=== PATIENT | female | born 1950 | race Caucasian/White ===

== ENCOUNTER → 2016-08-16 | Outpatient (CLI) | payer BC ==
[~2016-08-16] MED LIST: ACET-1138 PO; ASPEC81 PO; ATOR10TA88 PO; IBUP-1050 PO; NRV5 PO; RXC5 PO
[2016-08-16 12:46] LABS: ALT/SGPT 40 U/L (12-78); AST/SGOT 20 U/L (15-37); BLOOD UREA NITROGEN 15 mg/dl (7-18); BUN/CREATININE RATIO 20.2 (10-20); CALCIUM 8.7 mg/dl (8.5-10.1); CARBON DIOXIDE 25 mmol/L (21-32); CHLORIDE 108 mmol/L (98-107); CREATININE 0.76 mg/dl (0.60-1.20); GLUCOSE 90 mg/dl (70-99); POTASSIUM 4.1 mmol/L (3.5-5.1); SODIUM 141 mmol/L (136-145)
[2016-08-16 12:48] LABS: ALB/GLOB RATIO 1.2 (0.9-2); ALKALINE PHOSPHATASE 83 U/L (45-117); CHOLESTEROL 174 mg/dl (0-200); HDL CHOLESTEROL 86 mg/dl; LDL CHOLESTEROL CALCULATED 75 mg/dl; TRIGLYCERIDES 63 mg/dl (0-150); VERY LOW DENSITY LIPOPROT CALC 13 mg/dl
== END | disposition home or self-care (01) ==
LOC: C.LABBFT 08:41
PROVIDERS: ATTEND Internal Medicine
DX: F17.200 Nicotine dependence, unspecified, uncomplicated (principal); E78.5 Hyperlipidemia, unspecified

== ENCOUNTER 2016-10-27 00:58 | Inpatient (IN) | payer BC, OTHER ==
[2016-10-27] VITALS (15 sets, daily range): BP systolic 124–212; BP diastolic 77–99; PULSE 65–90; TEMP 36.4–37.2; O2SAT 93–100; Ht 152.4 cm; Wt 52.4 kg
[~2016-10-27] VITALS: Ht 152.4 cm; Wt 52.4 kg
[~2016-10-27 00:58] MED LIST changes: -ACET-1138 PO; -ASPEC81 PO; -ATOR10TA88 PO; -NRV5 PO; -RXC5 PO
[2016-10-27] MEDS ORDERED: ONDANSETRON INJ 2 MG/ML 2 ML VIAL IV STA (01:27)
[2016-10-27] MEDS: MoRPHine SULFATE 4 MG/ML 1 ML CARP\\VIAL IV PRN ×4 (01:34→03:08)
--- NOTE | 2016-10-27 01:35 | EMERGENCY ROOM VISIT NOTE ---
History Report prepared by Raghavendra: Fabio Malone Under the Supervision of: Dr. Marvin Chau M.D. First contact with patient: 01:23 Chief Complaint: ARM PAIN Stated Complaint: FALL POSSIBLE BROKEN LEFT ARM,RT ARM PAIN History of Present Illness The patient is a 65 year old female who presents to the Emergency Room with complaints of bilateral shoulder pain that occurred 20 minutes ago. The patient rates her current pain a 10/10 in severity. The patient was walking through her door when she tripped and fell forward onto her arms. Her left is worse than her right. Her pain worsens with movement. She thinks she may have damaged her right front tooth as well. She did not lose consciousness. She denies any other pain anywhere. She is just on a medication for her cholesterol. She has never had a broke bone before. Source of History: patient Onset: 20 minutes ago Position: shoulder (bilateral) Symptom Intensity: 10/10 Quality: sharp Timing: constant Modifying Factors (Worsening): movement Associated Symptoms: No LOC, No SOB, No abdominal pain, No back pain, No chest pain, No neck pain Review of Systems See HPI for pertinent positives & negatives. A total of 10 systems reviewed and were otherwise negative. Past Medical & Surgical Medical Problems: (1) Hyperlipidemia Family History Omitted due to age. Social History Smoking Status: Never Smoker Smokeless Tobacco Use: No Drug Use: none Marital Status: Housing Status: lives with family Occupation Status: retired Current/Historical Medications Scheduled Atorvastatin (Lipitor), 10 MG PO QPM Allergies Coded Allergies: No Known Allergies (Unverified , 06/30/14) Physical Exam Vital Signs Date Time Temp Pulse Resp B/P Pulse Ox O2 Delivery O2 Flow Rate FiO2 10/27/16 04:30 82 16 174/97 99 Nasal Cannula 2.0 10/27/16 04:15 73 16 193/91 100 Nasal Cannula 2.0 10/27/16 04:10 78 16 180/85 99 Mask 10/27/16 04:07 6 96 Nasal Cannula 2.0 10/27/16 04:06 72 16 212/99 98 Nasal Cannula 2.0 10/27/16 03:48 62 16 204/92 99 Nasal Cannula 2.0 10/27/16 03:43 65 16 204/92 99 Nasal Cannula 2.0 10/27/16 03:40 77 10/27/16 03:09 65 16 184/89 95 Room Air 10/27/16 02:30 69 16 193/97 96 Room Air 10/27/16 01:07 36.3 103 20 195/113 95 Room Air Physical Exam GENERAL: Patient is in no acute distress. HEENT: No facial deformity. Mucous membranes are moist. No scalp hematoma. Right upper 1st incisor is loose with some bleeding at the gum line. NECK: No stridor, no adenopathy, no meningismus, trachea is midline. No posterior c-spine tenderness. LUNGS: Clear to auscultation bilaterally, no wheeze, no rhonchi, breath sounds equal. HEART: Without murmurs gallops or rubs, regular rate and rhythm. ABDOMEN: Soft, nontender, bowel sounds positive, no hernias, no peritonitis. BACK: No tenderness to the thoracic or lumbar spine. EXTREMITIES: Tender to palpate both shoulders, possible dislocation to the right shoulder by exam. No gross deformity to the right or left humerus. Elbows , wrists, and hands have no tenderness. Clavicles nontender. NEUROLOGIC: Oriented x 3, no acute motor or sensory deficits, no focal weakness. SKIN: No rash, no jaundice, no diaphoresis. Medical Decision & Procedures ER Provider Diagnostic Interpretation: X-ray results as stated below per interpretation by me: CHEST X-RAY: Right shoulder dislocation, no pneumothorax, no obvious rib fracture, no clavicle fracture Per me Left Shoulder X-RAY: Fracture to the shaft of the proximal humerus, no shoulder dislocation Per me Right Shoulder X-RAY: Anterior dislocation of the right shoulder, no fractures seen Per me Post Reduction Right Shoulder X-RAY: No longer any dislocation, no fracture Per me Post Splint Left Shoulder X-RAY: Same fracture noted previously is present, 100% displacement and some overriding of the bony fragments. Per me Laboratory Results 10/27/16 01:35 10/27/16 01:35 Test 10/27/16 01:35 Red Blood Count 3.81 M/uL (4.2-5.4) Mean Corpuscular Volume 89.5 fL (80-100) Mean Corpuscular Hemoglobin 30.7 pg (25-34) Mean Corpuscular Hemoglobin Concent 34.3 g/dl (32-36) RDW Standard Deviation 44.8 fL (36.4-46.3) RDW Coefficient of Variation 13.6 % (11.5-14.5) Mean Platelet Volume 9.6 fL (7.4-10.4) Prothrombin Time 11.0 SECONDS (9.0-12.0) Prothromb Time International Ratio 1.0 (0.9-1.1) Activated Partial Thromboplast Time 23.6 SECONDS (21.0-31.0) Partial Thromboplastin Ratio 0.9 Anion Gap 12.0 mmol/L (3-11) Est Creatinine Clear Calc Drug Dose 51.6 ml/min Estimated GFR () 92.5 Estimated GFR (Non- 79.8 BUN/Creatinine Ratio 15.2 (10-20) Calcium Level 8.3 mg/dl (8.5-10.1) 25-Hydroxy Vitamin D Total 7.9 ng/ml (30-100) Laboratory results reviewed by me. Medications Administered Medications (Trade) Dose Ordered Sig/Evelyn Route Start Time Stop Time Status Last Admin Dose Admin Morphine Sulfate (MoRPHine SULFATE INJ) 4 mg Q15M PRN IV 10/27/16 01:30 10/27/16 05:58 DC 10/27/16 03:08 4 MG Ondansetron HCl (Zofran Inj) 4 mg NOW STAT IV 10/27/16 01:27 10/27/16 01:30 DC 10/27/16 01:34 4 MG Procedure Procedural Sedation Indication: Shoulder dislocation. Total time: 20 minutes. Written consent was obtained after the risks and benefits were explained to the patient, including, but not limited to aspiration, allergic reaction, breathing difficulties, cardiac complications, vomiting, pain, event recall, bleeding, and /or infection. Pre-sedation examination and paperwork completed. The patient was on 100% oxygen via NRB prior to the procedure. Continuos end tidal CO2 monitoring, pulse oximetry, and cardiac monitoring were utilized. Suction, airway equipment, medications, respiratory equipment, and appropriate personnel were prepared prior to the initiation of the procedure. A time out was taken. Sedation was achieved utilizing 5 mg of IV Etomidate. After I observed the patient had reached the appropriate level of sedation the main procedure was performed without complication. Sedation was discontinued and the monitoring continued. The patient recovered quickly from the effects of the medication without complication or adverse event. Right Should Reduction: Using conscious sedation and traction with countertraction, the right shoulder was easily reduced. Post reduction films were obtained. ED Course 0123: The patient was evaluated in room B3. A complete history and physical exam was performed. 0127: Ordered Zofran Inj 4 mg IV 0130: Ordered Morphine Sulfate 4 mg IV 0358: Ordered Etomidate 5 mg IV 0405: At this time, I conducted a conscious sedation and shoulder reduction procedure. Please see the procedure note for more detail. 0425: I left the room at this time. The procedures were completed. 0438: Upon reexamination the patient is resting. I discussed results and treatment plan with the patient. She verbalizes agreement and understanding. The patient will be evaluated by Dr. Barahona - Orthopedics, for further management. I also updated the patient's at this time. Medical Decision Differential diagnosis includes but is not limited to shoulder or humeral fracture, clavicle fracture, facial fracture, intracranial bleeding, c-spine injury, and shoulder dislocation. There is no leukocytosis or concerning anemia. No significant electrolyte abnormality or kidney failure. There is no coagulopathy. Chest film shows a right anterior shoulder dislocation, there was no rib fracture, pneumothorax or pneumonia. Right shoulder film shows no fracture but there is a right anterior shoulder dislocation. Left shoulder and left humerus films show a proximal shaft humeral fracture with near 100% displacement and some overriding of the fracture fragments. There was no dislocation of the shoulder joint. On exam, no other injuries were noted except for loosening of the patient's right upper front tooth. No facial fracture suspected. The patient is not on any type of anticoagulation. There was no evidence for injury to the C-spine, back, chest or abdomen. The patient received IV morphine, IV Zofran and IV saline. The left humeral fracture was splinted. I had a long discussion with the patient about the way in which to reduce her right shoulder, she did consent to conscious sedation, the paperwork was signed. She had not had anything to eat and multiple hours. Conscious sedation was performed using only 5 mg of IV Etomidate. Traction and countertraction were used to reduce the right shoulder dislocation. No complications. The patient did require a few breaths of bag valve mask ventilation directly after the reduction was complete. She did well with no drop off her O2 saturation. Admission/observation is warranted. She will require surgery. Both arms have been injured. She cannot care for herself at home. I did speak with the patient and her . The on-call orthopedist was consulted. Consults Time Called: [phone] Consulting Physician: Dr. Faustino Barahona - Orthopedics Returned Call: [phone] He will be evaluating the patient for further management. Impression Primary Impression: Left humeral fracture Additional Impressions: Dislocation of right shoulder joint Dental trauma Fall Scribe Attestation The scribe's documentation has been prepared under my direction and personally reviewed by me in its entirety. I confirm that the note above accurately reflects all work, treatment, procedures, and medical decision making performed by me. Departure Information Dispostion Being Evaluated By Surgeon Referrals Alfredo Zayas M.D. (PCP) Patient Instructions My [facility] Problem Qualifiers
[2016-10-27] MEDS ORDERED: ATOR10TA82 PO (01:57)
[2016-10-27 03:36] LABS: HEMATOCRIT 34.1 % (37-47); MEAN CELL VOLUME 89.5 fL (80-100); MEAN CORPUSCULAR HEMOGLOBIN 30.7 pg (25-34); MEAN CORPUSCULAR HGB CONC 34.3 g/dl (32-36); MEAN PLATELET VOLUME 9.6 fL (7.4-10.4); PLATELET COUNT 264 K/uL (130-400); RED BLOOD COUNT 3.81 M/uL (4.2-5.4); WHITE BLOOD COUNT 6.49 K/uL (4.8-10.8)
[2016-10-27 03:43] LABS: BUN/CREATININE RATIO 15.2 (10-20); CALCIUM 8.3 mg/dl (8.5-10.1); CREATININE 0.78 mg/dl (0.60-1.20); POTASSIUM 3.3 mmol/L (3.5-5.1)
[2016-10-27] MEDS ORDERED: ETOMIDATE 2 MG/ML 20 ML VIAL IV ONE (03:58)
[2016-10-27] MEDS ORDERED: NURSING VERBAL MED ORDER ONE ×2 (05:00→14:39)
[2016-10-27 05:23] LABS: PARTIAL THROMBOPLASTIN RATIO 0.9
[2016-10-27] MEDS ORDERED: ONDANSETRON INJ 2 MG/ML 2 ML VIAL IV PRN ×2 (06:00→10:00)
[2016-10-27] MEDS ORDERED: CEFAZOLIN 1000MG/55 ML D5W IV SCH (06:00)
[2016-10-27] MEDS: SODIUM CHLORIDE 0.9% 1000ML 1,000 ML IV SCH ×2 (06:15→16:47)
[2016-10-27] MEDS: HYDROmorphone INJ 0.5 MG/0.5 ML SYR IV PRN ×2 (06:22→09:24)
[2016-10-27] MEDS ORDERED: INFLUENZA VIRUS QUAD VACCINE 0.5 ML SYR IM. ONE (07:00)
[2016-10-27] MEDS ORDERED: PNEUMOCOCCAL POLYSACCHARIDES 25 MCG/0.5 ML VIAL/SYR IM. ONE (07:00)
[2016-10-27] MEDS ORDERED: INFLUENZA ADMINISTRATION CHARGE ONE (07:00)
[2016-10-27] MEDS ORDERED: PNEUMOCOCCAL ADMINISTRATION CHARGE ONE (07:00)
--- NOTE | 2016-10-27 07:27 | DIAGNOSTIC IMAGING REPORT ---
CHEST ONE VIEW PORTABLE CLINICAL HISTORY: Chest pain status post trauma COMPARISON STUDY: 10/29/2012 FINDINGS: The cardiac and mediastinal contours are normal. There is no evidence of focal pulmonary consolidation. There is no evidence of failure. No pleural effusions are visualized.[ There is a right shoulder dislocation. IMPRESSION: 1. Right shoulder dislocation 2. No evidence of focal pulmonary consolidation. No evidence of pneumothorax. Electronically signed by: Kwabena Young M.D. 10/27/2016 7:26 AM Dictated Date/Time: 10/27/2016 7:24 AM
--- NOTE | 2016-10-27 07:28 | DIAGNOSTIC IMAGING REPORT ---
RIGHT SHOULDER MIN 2 VIEWS ROUTINE CLINICAL HISTORY: Right shoulder pain status post trauma COMPARISON: None. DISCUSSION: There is anterior dislocation of the right shoulder. There is equivocal Hill-Sachs deformity. No humeral neck fractures are visualized. IMPRESSION: Anterior dislocation. Electronically signed by: Kwabena Young M.D. 10/27/2016 7:26 AM Dictated Date/Time: 10/27/2016 7:26 AM
--- NOTE | 2016-10-27 07:29 | DIAGNOSTIC IMAGING REPORT ---
LEFT SHOULDER MIN 2 VIEWS ROUTINE CLINICAL HISTORY: fall, pain COMPARISON: None. DISCUSSION: There is no dislocation. There is an oblique/spiral fracture of the proximal humeral diaphysis. The fracture is displaced by nearly one full shaft width. IMPRESSION: Displaced oblique/spiral fracture of the proximal humeral diaphysis Electronically signed by: Kwabena Young M.D. 10/27/2016 7:27 AM Dictated Date/Time: 10/27/2016 7:27 AM
--- NOTE | 2016-10-27 08:15 | Medical Consult ---
Consultation Date of Consultation: Oct 27, 2016. Attending Physician: Parker Barahona D.O. Reason for Consultation: Mechanical fall, humerus fracture, shoulder dislocation History of Present Illness Pt is a 65 yo female who presents to the ER with complaints of bilateral shoulder pain that occurred [employer]. Patient is a healthy female who states she suffered a mechanical fall by tripping over a rug, and falling forward onto her arms. Pt denies any preceding symptoms including shortness of breath, chest pain, palpitations, headaches. She denies loss of consciousness but states did knock a tooth loose. Pt only has hx of dyslipidemia in which she takes atorvastatin. Pt is not a smoker and follows up with Dr Zayas as an outpatient. Past Medical/Surgical History Medical Problems: (1) Dental trauma Status: Acute (2) Dislocation of right shoulder joint Status: Acute (3) Fall Status: Acute (4) Left humeral fracture Status: Acute Social History Smoking Status: Former Smoker Smokeless Tobacco Use: No Drug Use: none Marital Status: Housing Status: lives with family Occupation Status: retired Allergies Coded Allergies: No Known Allergies (Unverified , 06/30/14) Current Inpatient Medications Current Inpatient Medications Medications (Trade) Dose Ordered Sig/Evelyn Route Start Time Stop Time Status Last Admin Dose Admin Sodium Chloride (Nss 1000ml) 1,000 ml @ 100 mls/hr Q10H IV 10/27/16 06:00 11/26/16 05:59 10/27/16 06:15 100 MLS/HR Hydromorphone HCl (Dilaudid Inj) 0.3 mg Q3H PRN IV 10/27/16 06:00 11/10/16 05:59 10/27/16 06:22 0.3 MG Ondansetron HCl 4 mg 4 mg Q6H PRN IV 10/27/16 06:00 11/26/16 05:59 Cefazolin Sodium (Ancef 1000mg/55 ml D5W) 55 ml @ 100 mls/hr PREOP IV 10/27/16 06:00 10/27/16 18:00 Hydralazine HCl (HydrALAZINE INJ) 10 mg Q4HWA PRN IV. 10/27/16 08:00 11/26/16 07:59 UNV Review of Systems Constitutional: No chills, No fever Respiratory: No cough, No dyspnea on exertion, No shortness of breath, No sputum Cardiovascular: No chest pain, No orthopnea Abdomen: No constipation, No diarrhea, No nausea, No pain, No vomiting Musculoskeletal: + joint pain, No muscle pain Genitourinary - Female: No dysuria, No urinary frequency Neurologic: No paralysis, No weakness Physical Exam Date Time Temp Pulse Resp B/P Pulse Ox O2 Delivery O2 Flow Rate FiO2 10/27/16 08:06 36.4 81 16 161/79 99 Nasal Cannula 2.0 10/27/16 06:04 36.7 81 18 98 Nasal Cannula 2.0 10/27/16 05:10 82 16 167/89 98 Nasal Cannula 2.0 10/27/16 04:30 82 16 174/97 99 Nasal Cannula 2.0 10/27/16 04:15 73 16 193/91 100 Nasal Cannula 2.0 10/27/16 04:10 78 16 180/85 99 Mask 10/27/16 04:07 6 96 Nasal Cannula 2.0 10/27/16 04:06 72 16 212/99 98 Nasal Cannula 2.0 10/27/16 03:48 62 16 204/92 99 Nasal Cannula 2.0 10/27/16 03:43 65 16 204/92 99 Nasal Cannula 2.0 10/27/16 03:40 77 10/27/16 03:09 65 16 184/89 95 Room Air 10/27/16 02:30 69 16 193/97 96 Room Air 10/27/16 01:07 36.3 103 20 195/113 95 Room Air General Appearance: WD/WN, + mild distress Head: normocephalic, atraumatic Eyes: PERRL, EOMI Neck: supple, no adenopathy Respiratory/Chest: lungs clear, normal breath sounds Cardiovascular: no edema, no gallop Abdomen/GI: non tender, soft Neurologic/Psych: alert, normal mood/affect, oriented x 3 Laboratory Results Last 24 Hours Test 10/27/16 01:35 White Blood Count 6.49 K/uL Red Blood Count 3.81 M/uL Hemoglobin 11.7 g/dL Hematocrit 34.1 % Mean Corpuscular Volume 89.5 fL Mean Corpuscular Hemoglobin 30.7 pg Mean Corpuscular Hemoglobin Concent 34.3 g/dl RDW Standard Deviation 44.8 fL RDW Coefficient of Variation 13.6 % Platelet Count 264 K/uL Mean Platelet Volume 9.6 fL Prothrombin Time 11.0 SECONDS Prothromb Time International Ratio 1.0 Activated Partial Thromboplast Time 23.6 SECONDS Partial Thromboplastin Ratio 0.9 Sodium Level 136 mmol/L Potassium Level 3.3 mmol/L Chloride Level 103 mmol/L Carbon Dioxide Level 21 mmol/L Anion Gap 12.0 mmol/L Blood Urea Nitrogen 12 mg/dl Creatinine 0.78 mg/dl Est Creatinine Clear Calc Drug Dose 51.6 ml/min Estimated GFR () 92.5 Estimated GFR (Non- 79.8 BUN/Creatinine Ratio 15.2 Random Glucose 129 mg/dl Calcium Level 8.3 mg/dl Assessment & Plan Pt is a 65 yo female s/p mechanical fall Left humerus fx/right shoulder dislocation from mechanical fall. No LOC reported. Pt is completely independent at home. EKG NSR. Cont pain control. Will check Vit D level. Will likely need DEXA scan as outpt. Low risk for surgery and cleared from medical standpoint. Dyslipidemia cont atorvastatin Pt is FULL CODE
--- NOTE | 2016-10-27 08:21 | DIAGNOSTIC IMAGING REPORT ---
RIGHT SHOULDER MIN 2 VIEWS ROUTINE CLINICAL HISTORY: Dislocation. Post reduction study. COMPARISON: None. DISCUSSION: There is been interval reduction of the previously described anterior dislocation. No acute fractures are visualized the provided 2 images. Degenerative changes are present within the AC joint. IMPRESSION: Interval reduction of the presented identified dislocation Electronically signed by: Kwabena Young M.D. 10/27/2016 8:20 AM Dictated Date/Time: 10/27/2016 8:19 AM
--- NOTE | 2016-10-27 08:35 | DIAGNOSTIC IMAGING REPORT ---
LEFT HUMERUS MIN 2 VIEWS ROUTINE CLINICAL HISTORY: Left humeral fracture. Post splint placement. COMPARISON: Left shoulder x-ray dated 10/27/2016 DISCUSSION: There is an oblique/spiral fracture of the proximal humeral diaphysis. The fracture demonstrates greater than 1 full shaft width displacement. There is 17 degrees of angulation at the fracture site. There is associated soft tissue swelling IMPRESSION: Displaced angulated oblique/spiral fracture of the proximal humeral diaphysis Electronically signed by: Kwabena Young M.D. 10/27/2016 8:34 AM Dictated Date/Time: 10/27/2016 8:33 AM
--- NOTE | 2016-10-27 08:42 | History and Physical ---
History & Physical Date Oct 27, 2016. History of Present Illness The patient is a 65 year old female with complaints of bilateral shoulder pain after a fall. Pt states that as she was ambulating at home when she tripped on a piece of carpet. She fell forwards onto outstretched hands trying to break her fall. She had immediate pain in both shoulders and was unable to move them do to pain. She denies LOC after the fall. Denies SOB, CP, LH prior to or after the fall. Pt came to the [facility] ED with her and was found to have a dislocated Right Shoulder and a proximal left humerus fracture. The right shoulder dislocation was reduced and placed in a sling. The LUE was placed in a splint and sling. Pt has now been admitted for further orthopedic care. Past Medical/Surgical History Medical Problems: (1) Hyperlipidemia Family Hx - Mother with h/o DM Type 2 Social Hx - Pt is and lives with spouse. Former Smoker. Alcohol on occasion. Works at [employer] in [place] Additional History Hepatic Disease: No Endocrine Disorder: No Kidney Disease: No Hypertension: No Heart Disease: No Bleeding Tendencies: No Infectious Diseases: No Allergies Coded Allergies: No Known Allergies (Unverified , 06/30/14) Home Medications Scheduled Atorvastatin (Lipitor), 10 MG PO QPM Physical Examination Skin: warm/dry Eyes: normal inspection ENT: + pertinent finding (nasal airway is patent. oral mucosa is pink and dry) Head: normocephalic Neck: supple Respiratory/Chest: lungs clear Cardiovascular: regular rate, rhythm Abdomen / GI: normal bowel sounds, non tender Extremities: + pertinent finding (RUE in sling. R elbow/wrist/hand/fingers with good ROM. No ROM done with shoulder due to injury. LUE in sling/splint. L wrist/hand fingers with good ROM.) Neurologic/Psych: no motor/sensory deficits, alert, oriented x 3 Diagnosis R Shoulder Dislocation with successful reduction in ER L Proximal Humerus Fracture Plan of Treatment Plan for ORIF of Left proximal Humerus Fracture today. Continue Sling for RUE with no ROM of shoulder at this time. Message from nursing staff that patient has been cleared medically for OR.
[2016-10-27] MEDS ORDERED: ATROPINE SULFATE 0.1 MG/ML 5ML SYR IV PRN (10:00)
[2016-10-27] MEDS ORDERED: EpHEDrine SULFATE INJ 50 MG/ML AMP IV PRN (10:00)
[2016-10-27] MEDS ORDERED: FENTANYL CITRATE INJ 50 MCG/1 ML 2 ML VIAL IV PRN (10:00)
[2016-10-27] MEDS ORDERED: MIDAZOLAM HCL 1 MG/ML 2ML VIAL ONE (10:36)
[2016-10-27] MEDS ORDERED: FENTANYL CITRATE INJ 50 MCG/1 ML 2 ML VIAL ONE (10:36)
[2016-10-27] MEDS ORDERED: ROPIVACAINE 0.5% 5 MG/ML 30 ML VIAL ONE (11:14)
--- NOTE | 2016-10-27 11:32 | History & Physical Bridge Note ---
H&P Re-Evaluation Bridge Note: I have examined the patient, reviewed the History & Physical and in the interval since the performance of the History & Physical I have noted the following changes of clinical significance: No changes noted
[2016-10-27] MEDS ORDERED: CEFAZOLIN SOD 1 GM VIAL ONE (12:38)
[2016-10-27] MEDS ORDERED: BUPIVACAINE/EPINEPHRINE 0.5% MPF 1:200,000 30 ML VIAL ONE (12:58)
[2016-10-27] MEDS ORDERED: LIDOCAINE HCL 2% 2 ML VIAL (20MG/ML) ONE (13:13)
[2016-10-27] MEDS ORDERED: PROPOFOL IV EMULSION 10 MG/ML 20 ML VIAL IV ONE (13:13)
[2016-10-27] MEDS ORDERED: ONDANSETRON INJ 2 MG/ML 2 ML VIAL ONE (13:13)
[2016-10-27] MEDS ORDERED: DEXAMETHASONE SOD INJ 4 MG/ML VIAL ONE (13:13)
--- NOTE | 2016-10-27 14:21 | DIAGNOSTIC IMAGING REPORT ---
INTRAOPERATIVE LEFT HUMERUS 4 VIEWS CLINICAL HISTORY: Left humeral fracture COMPARISON STUDY: 10/27/2016 FINDINGS: 131 seconds of fluoroscopic time was utilized. The patient's left humeral fracture has been internally fixated with an interlocking intramedullary ivory. Fracture alignment appears near-anatomic. IMPRESSION: Internally fixated fracture of the proximal left humeral diaphysis Electronically signed by: Kwabena Young M.D. 10/27/2016 2:19 PM Dictated Date/Time: 10/27/2016 2:18 PM
--- NOTE | 2016-10-27 14:22 | [facility] Post Operative Brief Note ---
Immediate Operative Summary Operative Date Oct 27, 2016. Pre-Operative Diagnosis Left Closed Proximal 1/3 Humerus Fracture Post-Operative Diagnosis Left Closed Proximal 1/3 Humerus Fracture Procedure(s) Performed Intramedullary Nail Fixation left proximal 1/3 humeral shaft fracture Surgeon Dr. Parker Barahona Lens Mounter Surgeon(s) Sanya Johnson PA-C Estimated Blood Loss 30 mL Findings See dict Specimens No pathology specimens per surgeon Drains None Anesthesia GLMA w/ interscalene block and local Complication(s) None Disposition Recovery Room / PACU
[2016-10-27] MEDS ORDERED: ACETAMINOPHEN 325 MG TAB PO PRN (14:30)
[2016-10-27] MEDS ORDERED: MAGNESIUM HYDROXIDE SUSP 30 ML UDC PO PRN (14:30)
[2016-10-27] MEDS ORDERED: LABETALOL HCL IV 5 MG/ML 20ML IV ONE (14:45)
--- NOTE | 2016-10-27 15:01 | Anesthesiology Progress Note ---
Anesthesia Post Op Note Date & Time Oct 27, 2016 at 15:02 Vital Signs Pain Intensity: 0 Vital Signs Past 12 Hours Date Time Temp Pulse Resp B/P Pulse Ox O2 Delivery O2 Flow Rate FiO2 10/27/16 14:50 75 12 176/78 100 Mask 10 10/27/16 14:40 72 17 194/87 100 Mask 10 10/27/16 14:30 36.0 79 16 176/108 100 Mask 10 10/27/16 08:06 36.4 81 16 161/79 99 Nasal Cannula 2.0 10/27/16 07:30 99 Room Air 10/27/16 06:04 36.7 81 18 98 Nasal Cannula 2.0 10/27/16 05:10 82 16 167/89 98 Nasal Cannula 2.0 10/27/16 04:30 82 16 174/97 99 Nasal Cannula 2.0 10/27/16 04:15 73 16 193/91 100 Nasal Cannula 2.0 10/27/16 04:10 78 16 180/85 99 Mask 10/27/16 04:07 6 96 Nasal Cannula 2.0 10/27/16 04:06 72 16 212/99 98 Nasal Cannula 2.0 10/27/16 03:48 62 16 204/92 99 Nasal Cannula 2.0 10/27/16 03:43 65 16 204/92 99 Nasal Cannula 2.0 10/27/16 03:40 77 10/27/16 03:09 65 16 184/89 95 Room Air Notes Mental Status: alert / awake / arousable, participated in evaluation Pt Amnestic to Procedure: Yes Nausea / Vomiting: adequately controlled Pain: adequately controlled Airway Patency, RR, SpO2: stable & adequate BP & HR: stable & adequate Hydration State: stable & adequate Anesthetic Complications: no major complications apparent
--- NOTE | 2016-10-27 15:11 | DIAGNOSTIC IMAGING REPORT ---
LEFT HUMERUS MIN 2 VIEWS ROUTINE CLINICAL HISTORY: Postop left humeral fracture internal fixation COMPARISON: Fracture DISCUSSION: 2 views reveal no internally fixated spiral fracture of the proximal left humeral diaphysis. Fracture has been fixated with an interlocking intramedullary ivory. Fracture alignment is near-anatomic. IMPRESSION: Internally fixated left humeral fracture Electronically signed by: Kwabena Young M.D. 10/27/2016 3:10 PM Dictated Date/Time: 10/27/2016 3:09 PM
[2016-10-27] MEDS: HydrALAZINE HCL 20 MG/ML VIAL IV. PRN ×2 (18:08→18:09)
--- NOTE | 2016-10-27 18:42 | OPERATIVE REPORT ---
DATE OF OPERATION: 10/27/2016 PREOPERATIVE DIAGNOSES: Left displaced proximal one-third closed humeral shaft fracture. POSTOPERATIVE DIAGNOSIS: Same. PROCEDURE: Intramedullary nailing, left proximal one-third closed humeral shaft fracture using a Synthes 7 mm titanium cannulated humeral nail 230 mm in length using three 4 mm locking screws and a titanium end-cap. SURGEON: Dr. Barahona. DRAFTING SUPERVISOR: Sanya Johnson PA-C. Due to the complex nature of the procedure, the entire surgery was performed with the orthopedic assistant of MAXX Boucher.? The assistant casino shift manager, under direct supervision, was involved in the actual performance of all aspects of the surgical procedure including hemostasis, tissue retraction and incision, instrument management, patient positioning, and wound closure. ANESTHESIA: General LMA with interscalene block and supplemental local. SPECIMENS: None. DRAINS: None. COMPLICATIONS: None. BLOOD LOSS: 30 mL. PERTINENT HISTORY: This is a 65-year-old woman who was at her home late last evening, she felt she heard a thud in another room, she went up to investigate, tripped over a rug and fell on an outstretched bilateral upper extremities dislocating her right shoulder and fracturing her proximal one-third of the humerus. She was transported to [facility] at which point she is evaluated, x-rayed and her right shoulder was reduced and she was then admitted to the hospital for further care and management. All potential risks, benefits, complications, alternatives, rehab, potential for incomplete relief of symptoms, need for further surgery, DVT, PE, , persistent pain, swelling, scarring, weakness, neurovascular injury, wound complications, hardware failure, nonunion, malunion, need for further surgery discussed with the patient. The patient decided to proceed with the procedure as indicated. DESCRIPTION OF PROCEDURE: The patient had interscalene block in the preop holding area, was then taken to the operative suite, placed supine on the operating room table. After review of the consent and identification of proper operative site, patient anesthetized, LMA was placed. Left upper extremity was then sterilely prepped and draped in usual fashion and then local anesthetic 0.5% Marcaine with epinephrine was injected around the planned surgical incision site of the low anterolateral aspect of the shoulder which point, a 15-blade scalpel incision was then created over the anterolateral aspect of the shoulder just at the anterolateral border of the acromion. Next, the incision was deepened through subcutaneous tissue. Meticulous hemostasis was achieved with electrocautery. Full thickness skin flaps were developed. The deltoid fascia was encountered and then incised in line with skin incision with a 15-blade scalpel. Next, careful blunt dissection using Metzenbaum scissors was used to split the deltoid fibers down to the level of the anterior lateral aspect of the greater tuberosity lateral to the bicipital groove. The rotator cuff was then split with a 15-blade scalpel followed by placement of a sharp guide ivory in the proximal aspect of the humerus place under live fluoroscopic assistance. Once satisfactory position and alignment was achieved, then the proximal opening reamer was used with a tissue protection sleeve to open the proximal humerus. Next, this was irrigated with sterile normal saline, shoulder retractor was then used to retract the deltoid and the deltoid fascia. Next, a ball tip guide ivory was used to pass from the proximal fragment crossing the fracture site into the distal fragment under live fluoroscopic assistance. Once this was completed, the ball tip guidewire was placed in the center-center position at the distal aspect of the humerus just proximal to the olecranon fossa. Next, sequential reaming was performed beginning with a size 6 up to a size 8.5 mm and then a 230 mm cannulated humeral nail was then implanted crossing the fracture, stabilizing the fracture under live fluoroscopic assistance. The ball tip guide ivory was removed and then the proximal alignment guide was then attached to the nail guide and then using a small stab incision in the lateral aspect of the humerus the dynamic and static locking holes were then filled with stabilizing screws. Once this was completed, the insertion guide was then removed from the proximal nail after it was noted to be countersunk under live fluoroscopic assistance and the wound was copiously irrigated with sterile normal saline until clear followed by placement of a titanium end-caps. After this was placed, the distal aspect of the humerus was then gently backslapped with an open palm against resistance of the proximal humerus to compress the humerus at the fracture under live fluoroscopic assistance. Once this was completed, the distal locking hole was then visualized with the C-arm fluoroscope and then using free hand screw locking technique, a small stab incision was made in the anterior aspect of the brachium, careful blunt hemostat dissection was performed down to the level of the bone anterior cortex under live fluoroscopic assistance, a single anterior, posterior transverse locking screw was placed of appropriate length. Once this was completed, all wounds were then copiously irrigated with sterile normal saline. The rotator cuff was then closed using buried interrupted #1 Vicryl. The deltoid fascia was closed using buried interrupted #1 Vicryl. The dermis was closed using buried interrupted 2-0 Vicryl and the skin was then closed using 3-0 nylon. Next, sterile compressive dressing was applied. The patient was awakened, placed in a sling to bilateral upper extremities and she was then taken to recovery in stable condition. I attest to the content of the Intraoperative Record and any orders documented therein. Any exceptio ns are noted below.
[2016-10-27] MEDS: OXYCODONE HCL IR 5 MG TAB (IMMEDIATE RELEASE) PO PRN ×2 (18:58→23:26)
[2016-10-27] MEDS: CEFAZOLIN IV 1,000 MG in DEXTROSE 5% 50ML 50 ML IV SCH (19:56)
[2016-10-27] MEDS: DOCUSATE SODIUM 100 MG CAP PO SCH (19:58)
[2016-10-27] MEDS: ATORVASTATIN 10 MG TAB PO SCH (19:58)
[2016-10-28] MEDS: SODIUM CHLORIDE 0.9% 1000ML 1,000 ML IV SCH ×3 (01:46→21:58)
[2016-10-28] MEDS: CEFAZOLIN IV 1,000 MG in DEXTROSE 5% 50ML 50 ML IV SCH (03:32)
[2016-10-28] MEDS: OXYCODONE HCL IR 5 MG TAB (IMMEDIATE RELEASE) PO PRN ×5 (03:33→20:50)
[2016-10-28 03:35] VITALS: BP 126/67; PULSE 91; TEMP 36.7; O2SAT 94
[2016-10-28 06:51] LABS: HEMATOCRIT 25.8 % (37-47); MEAN CELL VOLUME 90.8 fL (80-100); MEAN CORPUSCULAR HEMOGLOBIN 30.3 pg (25-34); MEAN CORPUSCULAR HGB CONC 33.3 g/dl (32-36); MEAN PLATELET VOLUME 9.6 fL (7.4-10.4); PLATELET COUNT 187 K/uL (130-400); RED BLOOD COUNT 2.84 M/uL (4.2-5.4); WHITE BLOOD COUNT 6.62 K/uL (4.8-10.8)
[2016-10-28 07:39] VITALS: BP 130/73; PULSE 86; TEMP 36.9; O2SAT 95
--- NOTE | 2016-10-28 08:00 | Orthopedic Progress Note ---
Orthopedic Progress Note Date of Service Oct 28, 2016. Subjective Post OP Day: 1 Reports: complaints (pain in LUE), feeling well, Denies: SOB, chest pain, light headedness, nausea / vomiting Additional Notes: Pt states that her RUE is very sore this AM. No other complaints. Objective calves soft nontender, dressing C/D/I, A&O x3, CMS intact Bilateral shoulder slings in place. Left shoulder with mild swelling. Noted swelling down the arm to the elbow that appears no worse than prior to surgery. Moving left wrist/hand/fingers well. Good sensation. States she has some residual tingling in the fingers but otherwise the hand feels good. Able to do gentle FF of the right shoulder without difficulty. Date Time Temp Pulse Resp B/P Pulse Ox O2 Delivery O2 Flow Rate FiO2 10/28/16 07:39 36.9 86 16 130/73 95 Room Air 10/28/16 03:35 36.7 91 16 126/67 94 Room Air 10/27/16 23:25 Room Air 10/27/16 23:10 37.2 90 16 124/77 95 Room Air 10/27/16 18:30 37.1 84 18 151/85 93 Room Air 10/27/16 17:30 36.5 83 16 173/90 99 Nasal Cannula 10/27/16 16:30 36.6 72 16 151/85 100 Nasal Cannula 2.0 10/27/16 16:30 36.7 70 18 157/87 98 Nasal Cannula 2.0 10/27/16 16:30 98 Room Air 10/27/16 15:59 36.6 75 16 160/83 99 Nasal Cannula 2.0 10/27/16 15:32 98 Nasal Cannula 4.0 10/27/16 15:15 69 12 167/95 99 Nasal Cannula 2 10/27/16 15:00 36.2 76 12 167/82 99 Nasal Cannula 2 10/27/16 14:50 75 12 176/78 100 Mask 10 10/27/16 14:40 72 17 194/87 100 Mask 10 10/27/16 14:30 36.0 79 16 176/108 100 Mask 10 10/27/16 08:06 36.4 81 16 161/79 99 Nasal Cannula 2.0 Laboratory Results 24 Hours: Test 10/28/16 05:35 Hematocrit 25.8 % Hemoglobin 8.6 g/dL Assessment & Plan Assessment: POD 1 s/p Left IM nailing of proximal Humerus Fx Right Dislocated Shoulder (reduced in ER) Plan: Begin PT/OT No overt ROM of the R shoulder at this time. NWB on the LUE. Inhouse Planning Pain Management: Dilaudid, PO Tylenol, Oxy IR DVT Prophylaxis: TEDs, SCDs, ASA
[2016-10-28 08:01] LABS: BUN/CREATININE RATIO 14.5 (10-20); CALCIUM 7.9 mg/dl (8.5-10.1); CREATININE 0.65 mg/dl (0.60-1.20); POTASSIUM 4.2 mmol/L (3.5-5.1)
[2016-10-28 08:21] VITALS: O2SAT 95
[2016-10-28] MEDS: MULTIVITAMIN TAB PO SCH (08:51)
[2016-10-28] MEDS: DOCUSATE SODIUM 100 MG CAP PO SCH ×2 (08:51→20:48)
[2016-10-28] MEDS ORDERED: ASPIRIN 325 MG ECTAB PO SCH (09:00)
--- NOTE | 2016-10-28 11:02 | Progress Note ---
Subjective Date of Service: Oct 28, 2016. Subjective Pt evaluation today including: conversation w/ patient, physical exam, chart review, lab review, review of studies, review of inpatient medication list States pain in left shoulder mainly Sensation intact No fevers or chills Resting comfortably, sitting up in bed Problem List Medical Problems: (1) Dental trauma Status: Acute (2) Dislocation of right shoulder joint Status: Acute (3) Fall Status: Acute (4) Left humeral fracture Status: Acute Review of Systems Constitutional: No chills, No fever Respiratory: No cough, No dyspnea on exertion, No shortness of breath, No sputum, No wheezing Cardiac: No chest pain, No orthopnea Abdomen: No diarrhea, No nausea, No pain, No vomiting Musculoskeletal: + joint pain, No muscle pain Female : No dysuria, No urinary frequency Neurologic: No numbness/tingling, No paralysis, No weakness Objective Vital Signs Date Time Temp Pulse Resp B/P Pulse Ox O2 Delivery O2 Flow Rate FiO2 10/28/16 08:21 95 Room Air 10/28/16 07:39 36.9 86 16 130/73 95 Room Air 10/28/16 07:20 Room Air 10/28/16 03:35 36.7 91 16 126/67 94 Room Air 10/27/16 23:25 Room Air 10/27/16 23:10 37.2 90 16 124/77 95 Room Air 10/27/16 18:30 37.1 84 18 151/85 93 Room Air 10/27/16 17:30 36.5 83 16 173/90 99 Nasal Cannula 10/27/16 16:30 36.6 72 16 151/85 100 Nasal Cannula 2.0 10/27/16 16:30 36.7 70 18 157/87 98 Nasal Cannula 2.0 10/27/16 16:30 98 Room Air 10/27/16 15:59 36.6 75 16 160/83 99 Nasal Cannula 2.0 10/27/16 15:32 98 Nasal Cannula 4.0 10/27/16 15:15 69 12 167/95 99 Nasal Cannula 2 10/27/16 15:00 36.2 76 12 167/82 99 Nasal Cannula 2 10/27/16 14:50 75 12 176/78 100 Mask 10 10/27/16 14:40 72 17 194/87 100 Mask 10 10/27/16 14:30 36.0 79 16 176/108 100 Mask 10 Physical Exam General Appearance: WD/WN, no apparent distress Eyes: PERRL, EOMI Neck: supple, no adenopathy Respiratory/Chest: lungs clear, normal breath sounds Cardiovascular: no edema, no gallop Abdomen: non tender, soft Neurologic/Psychiatric: alert, normal mood/affect, oriented x 3 Laboratory Results Last 24 Hours Test 10/28/16 05:35 White Blood Count 6.62 K/uL Red Blood Count 2.84 M/uL Hemoglobin 8.6 g/dL Hematocrit 25.8 % Mean Corpuscular Volume 90.8 fL Mean Corpuscular Hemoglobin 30.3 pg Mean Corpuscular Hemoglobin Concent 33.3 g/dl RDW Standard Deviation 45.6 fL RDW Coefficient of Variation 13.7 % Platelet Count 187 K/uL Mean Platelet Volume 9.6 fL Sodium Level 139 mmol/L Potassium Level 4.2 mmol/L Chloride Level 106 mmol/L Carbon Dioxide Level 23 mmol/L Anion Gap 10.0 mmol/L Blood Urea Nitrogen 9 mg/dl Creatinine 0.65 mg/dl Est Creatinine Clear Calc Drug Dose 62.0 ml/min Estimated GFR () 108.0 Estimated GFR (Non- 93.2 BUN/Creatinine Ratio 14.5 Random Glucose 115 mg/dl Calcium Level 7.9 mg/dl Assessment and Plan Pt is a 65 yo female s/p mechanical fall S/P repair Left humerus fx/right shoulder dislocation from mechanical fall. No LOC reported. Pt is completely independent at home. EKG NSR. Cont pain control. Will likely need DEXA scan as outpt. PT/OT and dispo per primary team Acute blood loss anemia - Hemodynamically stable, cont to monitor, recheck CBC in AM Dyslipidemia cont atorvastatin Pt is FULL CODE
[2016-10-28] MEDS: ASPIRIN 81 MG ECTAB PO SCH (11:28)
[2016-10-28 11:34] VITALS: BP 130/75; PULSE 82; TEMP 36.8; O2SAT 95
[2016-10-28 15:43] VITALS: BP 151/92; PULSE 87; TEMP 36.9; O2SAT 97
[2016-10-28] MEDS: ATORVASTATIN 10 MG TAB PO SCH (20:48)
[2016-10-28 22:50] VITALS: BP 167/76; PULSE 106; TEMP 37.5; O2SAT 92
[2016-10-28] MEDS: HydrALAZINE HCL 20 MG/ML VIAL IV. PRN (22:53)
[2016-10-29] VITALS (8 sets, daily range): BP systolic 144–162; BP diastolic 75–88; PULSE 90–107; TEMP 36.6–37.3; O2SAT 93–96
[2016-10-29 06:52] LABS: HEMATOCRIT 25.1 % (37-47); MEAN CELL VOLUME 91.9 fL (80-100); MEAN CORPUSCULAR HEMOGLOBIN 30.8 pg (25-34); MEAN CORPUSCULAR HGB CONC 33.5 g/dl (32-36); PLATELET COUNT 181 K/uL (130-400); RED BLOOD COUNT 2.73 M/uL (4.2-5.4); WHITE BLOOD COUNT 6.16 K/uL (4.8-10.8)
[2016-10-29] MEDS: OXYCODONE HCL IR 5 MG TAB (IMMEDIATE RELEASE) PO PRN ×4 (07:23→20:48)
[2016-10-29] MEDS: SODIUM CHLORIDE 0.9% 1000ML 1,000 ML IV SCH ×2 (07:49→16:30)
[2016-10-29] MEDS: MULTIVITAMIN TAB PO SCH (08:34)
[2016-10-29] MEDS: DOCUSATE SODIUM 100 MG CAP PO SCH ×2 (08:34→20:35)
[2016-10-29] MEDS: ASPIRIN 81 MG ECTAB PO SCH (08:34)
--- NOTE | 2016-10-29 16:33 | Orthopedic Progress Note ---
Orthopedic Progress Note Date of Service Oct 29, 2016. Subjective Post OP Day: 2 Reports: feeling well, Denies: SOB, calf pain, chest pain, light headedness, nausea / vomiting Objective calves soft nontender, A&O x3, CMS intact Dressings with mild drainage. Swelling noted of RUE but soft. Moving fingers/ hand/wrist well. Date Time Temp Pulse Resp B/P Pulse Ox O2 Delivery O2 Flow Rate FiO2 10/29/16 15:00 37.0 107 16 146/76 95 Room Air 10/29/16 12:09 90 16 150/80 96 Room Air 10/29/16 11:20 Room Air 10/29/16 10:18 106 144/75 10/29/16 07:26 36.6 101 16 161/88 94 Room Air 10/29/16 07:15 94 Room Air 10/29/16 00:53 147/76 10/28/16 22:50 37.5 106 16 167/76 92 Room Air 10/28/16 19:30 Room Air Laboratory Results 24 Hours: Test 10/29/16 06:40 Hematocrit 25.1 % Hemoglobin 8.4 g/dL Assessment & Plan Assessment: POD 2 s/p Left IM nailing of proximal Humerus Fx Right Dislocated Shoulder (reduced in ER) Plan: Plan for dc tomorrow with home health. Inhouse Planning Pain Management: Dilaudid, PO Tylenol, Oxy IR DVT Prophylaxis: TEDs, SCDs, ASA
[2016-10-29] MEDS ORDERED: RXC5 PO (16:37)
[2016-10-29] MEDS ORDERED: ASPEC81 PO (16:37)
[2016-10-29] MEDS ORDERED: ACET-1138 PO (16:37)
--- NOTE | 2016-10-29 16:50 | Discharge Instructions ---
Discharge Instructions Date of Service Oct 29, 2016. Admission Reason for Admission: Right Shoulder Dislocation, Left Proximal Humerus Discharge Discharge Diagnosis / Problem: Right shoulder dislocation; Left proximal humerus fx Discharge Goals Goal(s): Decrease discomfort, Improve function Activity Recommendations Activity Limitations: per Instructions/Follow-up section Lifting Limitations: no more than 5 pounds (No more than a glass of water with the left arm until seen in office) Weightbearing Status: Left non-weightbearing . Instructions / Follow-Up Instructions / Follow-Up You must use slings when up ambulating. ACTIVITY RECOMMENDATIONS: SELF CARE INSTRUCTIONS AFTER TOTAL SHOULDER ARTHROPLASTY A. You may do daily exercises as taught in physical therapy while in hospital. No lifting with the operative arm. You will start home health PT once you are discharged. B. You are to wear your sling/immobilizer at all times EXCEPT when performing your daily exercises, participating in physical therapy and for hygiene purposes. C. You may perform dry, daily dressing changes. Please keep your incision covered. You may shower 48 hours after surgery. Do not apply soap or any ointment/ lotions directly over incision. Do not soak incision in bath tub/swimming pool. D. You may use ice as needed to operative shoulder. E. Do not rotate your right arm outwards past the neutral position. (you may go from your arm resting on your abdomen to normal walking position with elbow in the bent position) No reaching for things above your head. SPECIAL CARE INSTRUCTIONS: MEDICATION INSTRUCTIONS: *It is recommended you take Aspirin 81mg daily for four weeks post-op. VERY IMPORTANT TO READ AND REVIEW A. There are a few signs you need to watch for after you are home. Call [facility] at [phone] if you experience any of the followin. Increased severe shoulder pain. Some pain is expected especially when you exercise. 2. Increased swelling in you shoulder or arm; pain or swelling in either upper extremity. 3. Any fluid drainage from the incision. 4. Shortness of breath or chest pain. B. Please call [facility] at [phone] if you have any questions or concerns about your operation or recovery. C. Call your physician if: 1. Temperature is greater than 101 degrees (F). 2. Pain is not relieved by prescribed pain medications. 3. Increase drainage or redness from incision. 4. Unanswered questions or concerns. FOLLOW UP VISIT: Please call [facility] at [phone] to schedule a follow up appointment with Dr. Barahona or his PA in 10-14 days from your surgery date. FOLLOW UP WITH YOUR PRIMARY CARE PHYSICIAN IN ONE WEEK FOR BLOOD PRESSURE CHECK. Current Hospital Diet Patient's current hospital diet: Regular Diet Discharge Diet Recommended Diet: Regular Diet Procedures Procedures Performed: Intramedullary Nail Fixation left proximal 1/3 humeral shaft fracture Pending Studies Studies pending at discharge: no Laboratory Results Lipid Panel Test 08/16/16 08:48 Range/Units Triglycerides Level 63 0-150 mg/dl Cholesterol Level 174 0-200 mg/dl HDL Cholesterol 86 mg/dl Cholesterol/HDL Ratio 2.0 LDL Cholesterol, Calculated 75 mg/dl Medical Emergencies . Who to Call and When: Medical Emergencies: If at any time you feel your situation is an emergency, please call 911 immediately. . Non-Emergent Contact Non-Emergency issues call your: Primary Care Provider (FOR BLOOD PRESSURE QUESTIONS), Surgeon (FOR QUESTIONS ABOUT YOUR SURGERY) Call Non-Emergent contact if: temperature is above 101.5, your pain is not controlled, your pain is worsening, wound has increased drainage, wound has increased redness . "Provider Documentation" section prepared by Sanya Johnson. VTE Core Measure Inpt VTE Proph given/why not?: Other Anticoagulation, T.E.D. Stockings, SCD's [place] Drug Monitoring Program Search Results: patient reviewed within database, no issues identified
[2016-10-29] MEDS: ATORVASTATIN 10 MG TAB PO SCH (20:35)
[2016-10-29] MEDS ORDERED: NURSING VERBAL MED ORDER ONE (20:45)
[2016-10-30] MEDS: HydrALAZINE HCL 20 MG/ML VIAL IV. PRN (00:53)
[2016-10-30 00:55] VITALS: PULSE 92
[2016-10-30] MEDS: OXYCODONE HCL IR 5 MG TAB (IMMEDIATE RELEASE) PO PRN ×2 (03:20→11:58)
[2016-10-30 03:21] VITALS: BP 152/80
[2016-10-30 05:34] LABS: HEMATOCRIT 25.7 % (37-47); MEAN CELL VOLUME 92.1 fL (80-100); MEAN CORPUSCULAR HEMOGLOBIN 30.8 pg (25-34); MEAN CORPUSCULAR HGB CONC 33.5 g/dl (32-36); MEAN PLATELET VOLUME 9.2 fL (7.4-10.4); PLATELET COUNT 191 K/uL (130-400); RED BLOOD COUNT 2.79 M/uL (4.2-5.4); WHITE BLOOD COUNT 6.12 K/uL (4.8-10.8)
[2016-10-30 06:57] VITALS: BP 159/87; PULSE 99; TEMP 36.9; O2SAT 93
--- NOTE | 2016-10-30 07:15 | Orthopedic Progress Note ---
Orthopedic Progress Note Date of Service Oct 30, 2016. Subjective Post OP Day: 3 Reports: feeling well, Denies: SOB, calf pain, chest pain, light headedness, nausea / vomiting Additional Notes: Pt asking about her blood pressure this AM. BP's have been fluctuating over the last few days. Denies CP, irreg heart beat, SOB. Left shoulder painful off and on. Objective calves soft nontender, dressing C/D/I, A&O x3, CMS intact Date Time Temp Pulse Resp B/P Pulse Ox O2 Delivery O2 Flow Rate FiO2 10/30/16 06:57 36.9 99 17 159/87 93 Room Air 10/30/16 03:21 152/80 10/30/16 00:55 92 10/29/16 23:45 Room Air 10/29/16 22:50 37.3 102 16 162/85 93 Room Air 10/29/16 16:00 95 Room Air 10/29/16 15:00 37.0 107 16 146/76 95 Room Air 10/29/16 12:09 90 16 150/80 96 Room Air 10/29/16 11:20 Room Air 10/29/16 10:18 106 144/75 10/29/16 07:26 36.6 101 16 161/88 94 Room Air 10/29/16 07:15 94 Room Air Laboratory Results 24 Hours: Test 10/30/16 05:09 Hematocrit 25.7 % Hemoglobin 8.6 g/dL Assessment & Plan Assessment: POD 3 s/p Left IM nailing of proximal Humerus Fx Right Dislocated Shoulder (reduced in ER) Plan: Will have Med Service discuss BPs with pt. Likely due to pain control/surgery. Will have pt f/u with her PCP in 1 week for BP check. Plan for dc today Inhouse Planning Pain Management: Dilaudid, PO Tylenol, Oxy IR DVT Prophylaxis: TEDs, SCDs, ASA Discharge Planning Discharge Planning: home with home health Pain Management: PO Tylenol, Oxy IR DVT Prophylaxis: ASA Therapy: Physical Therapy
[2016-10-30] MEDS: DOCUSATE SODIUM 100 MG CAP PO SCH (08:50)
[2016-10-30] MEDS: ASPIRIN 81 MG ECTAB PO SCH (08:50)
[2016-10-30] MEDS: MULTIVITAMIN TAB PO SCH (08:50)
[2016-10-30 08:53] VITALS: BP 138/76
[2016-10-30] MEDS ORDERED: AMLODIPINE BESYLATE 5 MG TAB PO SCH (09:00)
[2016-10-30] MEDS ORDERED: NRV5 PO (10:22)
--- NOTE | 2016-10-30 10:25 | Discharge Instructions ---
Discharge Instructions Date of Service Oct 30, 2016. Admission Reason for Admission: Right Shoulder Dislocation, Left Proximal Humerus Discharge Discharge Diagnosis / Problem: Right shoulder dislocation, left proximal humerus fx Discharge Goals Goal(s): Decrease discomfort, Improve function, Increase independence, Improve disease control, Diagnostic testing, Therapeutic intervention Activity Recommendations Activity Limitations: per Instructions/Follow-up section May Resume Sexual Activity: when tolerated . Instructions / Follow-Up Instructions / Follow-Up Dispo and PT/OT per orthopedics instructions Please take new medicine for blood pressure: Amlodipine 10 mg once a day, this will be sent electronically to pharmacy, please follow up with Dr Zayas in 1 week Current Hospital Diet Patient's current hospital diet: Regular Diet Discharge Diet Recommended Diet: Regular Diet Procedures Procedures Performed: Intramedullary Nail Fixation left proximal 1/3 humeral shaft fracture Pending Studies Studies pending at discharge: no Laboratory Results Lipid Panel Test 08/16/16 08:48 Range/Units Triglycerides Level 63 0-150 mg/dl Cholesterol Level 174 0-200 mg/dl HDL Cholesterol 86 mg/dl Cholesterol/HDL Ratio 2.0 LDL Cholesterol, Calculated 75 mg/dl Medical Emergencies . Who to Call and When: Medical Emergencies: If at any time you feel your situation is an emergency, please call 911 immediately. . Non-Emergent Contact Non-Emergency issues call your: Primary Care Provider Call Non-Emergent contact if: you have a fever, your pain is worsening . . "Provider Documentation" section prepared by Toni Pereyra. VTE Core Measure Inpt VTE Proph given/why not?: Other Anticoagulation, T.E.D. Stockings, SCD's
--- NOTE | 2016-10-30 11:07 | Progress Note ---
Subjective Date of Service: Oct 30, 2016. Subjective Pt evaluation today including: conversation w/ patient, physical exam, chart review, lab review, review of studies, conversation w/ political consultant Resting comfortably in bed Pain on movement of upper extremities No fevers chills sob chest pain Problem List Medical Problems: (1) Dental trauma Status: Acute (2) Dislocation of right shoulder joint Status: Acute (3) Fall Status: Acute (4) Left humeral fracture Status: Acute Review of Systems Constitutional: No chills, No fever Eyes: No worsening of vision Respiratory: No cough, No shortness of breath, No sputum, No wheezing Cardiac: No chest pain, No orthopnea Abdomen: No diarrhea, No nausea, No pain, No vomiting Musculoskeletal: + joint pain, No muscle pain Female : No dysuria, No urinary frequency Objective Vital Signs Date Time Temp Pulse Resp B/P Pulse Ox O2 Delivery O2 Flow Rate FiO2 10/30/16 08:53 138/76 10/30/16 07:30 Room Air 10/30/16 06:57 36.9 99 17 159/87 93 Room Air 10/30/16 03:21 152/80 10/30/16 00:55 92 10/29/16 23:45 Room Air 10/29/16 22:50 37.3 102 16 162/85 93 Room Air 10/29/16 16:00 95 Room Air 10/29/16 15:00 37.0 107 16 146/76 95 Room Air 10/29/16 12:09 90 16 150/80 96 Room Air 10/29/16 11:20 Room Air Physical Exam General Appearance: WD/WN, + mild distress Neck: supple, no adenopathy Respiratory/Chest: lungs clear, normal breath sounds Cardiovascular: no edema, no gallop Abdomen: non tender, soft Extremities: + pertinent finding (arm in sling , pain with ROM) Neurologic/Psychiatric: alert, normal mood/affect Laboratory Results Last 24 Hours Test 10/30/16 05:09 White Blood Count 6.12 K/uL Red Blood Count 2.79 M/uL Hemoglobin 8.6 g/dL Hematocrit 25.7 % Mean Corpuscular Volume 92.1 fL Mean Corpuscular Hemoglobin 30.8 pg Mean Corpuscular Hemoglobin Concent 33.5 g/dl RDW Standard Deviation 46.2 fL RDW Coefficient of Variation 13.7 % Platelet Count 191 K/uL Mean Platelet Volume 9.2 fL Assessment and Plan Pt is a 65 yo female s/p mechanical fall S/P repair Left humerus fx/right shoulder dislocation from mechanical fall. No LOC reported. Pt is completely independent at home. EKG NSR. Cont pain control. Will likely need DEXA scan as outpt. PT/OT and dispo per primary team HTN - uncontrolled, likely from pain, but inc in last 2 days, started on norvasc 10 mg PO daily, F/U with PCP in 1 week Acute blood loss anemia - Hemodynamically stable, cont to monitor, recheck CBC in AM Dyslipidemia cont atorvastatin Pt is FULL CODE
[2016-10-30 12:12] VITALS: BP 138/76; PULSE 99; TEMP 36.9; O2SAT 93
--- NOTE | 2016-10-31 11:24 | DISCHARGE SUMMARY ---
DISCHARGE DIAGNOSES: Right shoulder dislocation, left proximal humerus fracture. SECONDARY DIAGNOSIS: Hyperlipidemia. CONSULTS: Toni Pereyra DO. COMPLICATIONS: None. PROCEDURES: Left closed IM nailing of proximal humerus fracture by Dr. Barahona on 10/27/2016. BRIEF HISTORY: As dictated in the history and physical. HOSPITAL SUMMARY: The patient was admitted on the above-noted date with the above-noted fracture. Dr. Pereyra was consulted for preoperative medical clearance and postoperative medical coverage. She was cleared for surgery and was taken to surgery on the same day. The above-noted procedure was performed which she tolerated well. On her first postoperative day, vital signs were stable, she was afebrile. She was feeling well but had some pain in her left upper extremity. She stated that her right upper extremity was sore this morning as well. Calves were soft and nontender. Dressings clean, dry and intact. CMS was intact. Bilateral shoulder slings were in place. Left shoulder with mild swelling, noted swelling down the arm to the elbow that appears to be no worse than prior to surgery. She was moving her left wrist and hand and fingers well. She had good sensation. She states that she has some residual tingling in the fingers, but otherwise the hand feels good. She was able to do forward flexion of the right shoulder without difficulty. Hemoglobin was 8.6 and she was started on some gentle physical therapy and gait training and continued on medical management. Over the next several days, the patient continued to remain stable. She had developed some increased blood pressure which was treated by Dr. Pereyra. She was otherwise remaining stable, and by 10/30/2016, was felt that she could be discharged to home. For further review, please see chart. LABORATORY AND X-RAY DATA: As per chart. DISCHARGE INSTRUCTIONS: The patient was discharged to home in satisfactory condition on 10/30/2016. DIET: Regular. ACTIVITY: No more than 5 pounds of lifting with the left arm. Nonweightbearing left upper extremity. Follow shoulder instruction sheets and special care instructions. Follow up with primary care physician in 1 week for blood pressure checks and follow up with Dr. Barahona in 10-14 days from the day of surgery. The patient to call for appointment if one has not been made for you. DISCHARGE MEDICATIONS: Acetaminophen 500 mg 2 tabs p.o. q. 8 hours, amlodipine 10 mg p.o. q.a.m., aspirin 81 mg p.o. daily for 30 days, oxycodone 5-10 mg p.o. q. 4 hours p.r.n., resume taking atorvastatin 10 mg p.o. q.p.m.
== END 2016-10-30 12:58 | disposition home health service (06) | DRG 493 ==
LOC: ENRESERVDT → ENRESERVTM → C.EDB 01:00 → C.3E 05:06
PROVIDERS: ADMIT Orthopaedic Surgery Sports Medicine; ATTEND Orthopaedic Surgery Sports Medicine
PROC: 0RSJXZZ Reposition Right Shoulder Joint, External Approach (ICD-10-PCS; 2016-10-27)
PROC: 0PSG34Z Reposition Left Humeral Shaft with Internal Fixation Device, Percutaneous Approach (ICD-10-PCS; principal; 2016-10-27 11:30)
DX: S42.302A Unspecified fracture of shaft of humerus, left arm, initial encounter for closed fracture (principal); D62 Acute posthemorrhagic anemia; Y92.009 Unspecified place in unspecified non-institutional (private) residence as the place of occurrence of the external cause; Y93.01 Activity, walking, marching and hiking; E78.5 Hyperlipidemia, unspecified; W18.09XA Striking against other object with subsequent fall, initial encounter; Z87.891 Personal history of nicotine dependence

== ENCOUNTER → 2018-03-03 | Outpatient (CLI) | payer BC ==
[~2018-03-03] MED LIST changes: +ACET-1138 PO; +ASPI-320 PO; +ATOR10TA82 PO; -IBUP-1050 PO; +NRV5 PO; +RXC5 PO
[2018-03-03 12:24] LABS: BASO % 1.1 %; BASO ABS # 0.06 K/uL (0-0.2); EOS % 4.2 %; EOS ABS # 0.22 K/uL (0-0.5); HEMOGLOBIN 13.5 g/dL (12.0-16.0); IG# 0.01 K/uL (0.00-0.02); LYMPH ABS # 1.78 K/uL (1.2-3.4); MEAN CELL VOLUME 93.6 fL (80-100); MEAN CORPUSCULAR HEMOGLOBIN 30.8 pg (25-34); MEAN CORPUSCULAR HGB CONC 32.9 g/dl (32-36); MEAN PLATELET VOLUME 10.3 fL (7.4-10.4); MONO % 9.9 %; MONO ABS # 0.52 K/uL (0.11-0.59); NEUT % 50.6 %; NEUT ABS # 2.64 K/uL (1.4-6.5); PLATELET COUNT 291 K/uL (130-400); RED CELL DISTRIBUTION WIDTH CV 13.7 % (11.5-14.5); RED CELL DISTRIBUTION WIDTH SD 47.4 fL (36.4-46.3); WHITE BLOOD COUNT 5.23 K/uL (4.8-10.8)
[2018-03-03 12:37] LABS: ALBUMIN 4.3 gm/dl (3.4-5.0); ALKALINE PHOSPHATASE 100 U/L (45-117); ALT/SGPT 30 U/L (12-78); AST/SGOT 24 U/L (15-37); BLOOD UREA NITROGEN 15 mg/dl (7-18); CALCIUM 8.9 mg/dl (8.5-10.1); CARBON DIOXIDE 26 mmol/L (21-32); CHOLESTEROL 177 mg/dl (0-200); CREATININE 0.75 mg/dl (0.60-1.20); GLUCOSE 83 mg/dl (70-99); LDL CHOLESTEROL CALCULATED 69 mg/dl; POTASSIUM 4.4 mmol/L (3.5-5.1); SODIUM 136 mmol/L (136-145); TOTAL PROTEIN 7.7 gm/dl (6.4-8.2)
== END | disposition home or self-care (01) ==
LOC: C.LABBFT 10:04
PROVIDERS: ATTEND Internal Medicine
DX: Z00.00 Encounter for general adult medical examination without abnormal findings (principal); E78.5 Hyperlipidemia, unspecified; R30.0 Dysuria; I10 Essential (primary) hypertension; R23.3 Spontaneous ecchymoses

== ENCOUNTER 2018-09-04 09:46 | Observation (INO) ==
--- NOTE | 2018-08-14 13:32 | Anesthesiology Consultation ---
Date of Service August 14, 2018 Assessment & Plan (1) Encounter for pre-operative examination: Chart Review Chart Review: Acceptable Risk for Surgery and Patient seen in Pre Admission Testing Teaching & Discussion Instructed NPO after midnight before surgery, except medications with 15 cc of water. Medication instructions provided according to the PAT guidelines. History Surgery Operation Date: 09/04/18 11:20 Proposed Procedures p Vaginal Hysterectomy, Possible Laparoscopic Assisted Uterosacral Ligament Vaginal Vault Suspension, Possible Anterior and/or Posterior Colporraphy, Bilateral Oophorectomy - Jaspal Sloan MD Height/Weight Height: 4 ft 11.5 in Weight: 52.9 kg Allergies Allergy/AdvReac Type Severity Reaction Status Date / Time No Known Allergies Allergy Unverified 08/11/18 09:14 Medications Home Medications Medication Instructions Recorded Confirmed Last Taken amlodipine 5 mg PO QAM 08/11/18 08/11/18 Unknown aspirin [Aspirin Low Dose] 81 mg PO QAM 08/11/18 08/11/18 Unknown atorvastatin 10 mg PO QAM 08/11/18 08/11/18 Unknown Past Medical History Medical History Hyperlipidemia Hypertension Past Surgical History Surgical History History of bilateral tubal ligation History of colonoscopy History of open reduction and internal fixation (ORIF) procedure LEFT ARM Past Anesthesia History No Hx of Anesthesia Complications and No Family Hx of Anesthesia Complications History of PONV No Motion Sickness Screening History of Motion Sickness: No Social History Smoking Status: Former smoker Smoking cigarettes per day: h/o 1ppd x 20+yrs Do You Dip or Chew Tobacco: No Smoking End Date: quit 5 years ago Hx Alcohol Use: Yes Alcohol type: beer alcohol intake frequency: 3 or more drinks per day Hx Substance Use: No substance use type: does not use Exercise / Class Metabolic Activity II 4-5 Yardwork/Stairs/Walk up hill (no CP or SOB with 1 FOS) Review of Systems Pt denies any recent chest pain, shortness of breath, palpitations, cough, fever or URI. Physical Exam Vital Signs BP: 149/75 P: 64bpm SPO2: 98% RA T: 97.8 F R: 12 ENMT Mouth: no dental restorations, no chipped teeth and no loose teeth Thyromental Distance: < 3.5 Finger Breadths (2) Mallampati Class: II Neck + shortened thyromental distance; neck extension not limited Respiratory normal respiratory effort Auscultation: lungs clear to auscultation bilaterally Cardiovascular Rate/Rhythm: regular rate and regular rhythm Heart Sounds: no murmur Vessels: no carotid bruit Extremities: no edema Testing Electrocardiogram Date: 08/14/18 Findings: + NSR @ (64) Rightward axis. iRBBB.. Compared to EKG of 10/27/16, NSTWA no longer evident in lateral leads. Laboratory Results 08/14/18 13:24 Blood Type A Positive 08/14/18 13:24 Antibody Screen NEGATIVE 08/14/18 13:24
--- NOTE | 2018-08-14 13:39 | PAT Medication Instructions ---
Medication Instructions Date of Service August 14, 2018 Home Medications amlodipine 5 mg PO QAM aspirin [Aspirin Low Dose] 81 mg PO QAM atorvastatin 10 mg PO QAM ASK your surgeon for instructions aspirin [Aspirin Low Dose] 81 mg PO QAM Take morning of surgery With a small sip of water, OTHERWISE NOTHING TO EAT OR DRINK AFTER MIDNIGHT: amlodipine 5 mg PO QAM atorvastatin 10 mg PO QAM Other Notes If you have any questions please call us at [phone] or [phone] or [phone] or [phone]
[2018-08-14 14:16] LABS: Basophils # (auto) 0.08 K/uL (0-0.2); Basophils % (auto) 1.5 %; Eosinophils # (auto) 0.13 K/uL (0-0.5); Eosinophils % (auto) 2.4 %; Hematocrit (blood only) 38.6 % (37-47); Immature Granulocytes # (auto) 0.02 K/uL (0.00-0.02); Immature Granulocytes % (auto) 0.4 %; Lymphocytes # (auto) 1.81 K/uL (1.2-3.4); Lymphocytes % (auto) 32.9 %; Mean Corpuscular Hgb Conc 33.7 g/dL (32-36); Mean Corpuscular Volume 93.7 fL (80-100); Mean Platelet Volume 9.8 fL (7.4-10.4); Monocytes # (auto) 0.44 K/uL (0.11-0.59); Neutrophils # (auto) 3.02 K/uL (1.4-6.5); Neutrophils % (auto) 54.8 %; Platelet Count 255 K/uL (130-400); RDW Coefficient of Variation 13.7 % (11.5-14.5); Red Blood Count 4.12 M/uL (4.2-5.4)
[~2018-09-04 09:46] MED LIST changes: -ACET-1138 PO; -ASPI-320 PO; -ATOR10TA82 PO; +CEFAZOLIN 2000MG 2,000 MG/15 ML SYR IV SCH; +LACTATED RINGER'S 1,000 ML IV SCH; +LR 15ML/HR IV SCH; -NRV5 PO; +PHENAZOPYRIDINE HCL 100 MG TAB PO ONE; -RXC5 PO
[2018-09-04 10:51] LABS: Basophils # (auto) 0.04 K/uL (0-0.2); Basophils % (auto) 0.9 %; Eosinophils # (auto) 0.17 K/uL (0-0.5); Eosinophils % (auto) 3.7 %; Hematocrit (blood only) 38.9 % (37-47); Hemoglobin 12.9 g/dL (12.0-16.0); Immature Granulocytes # (auto) 0.01 K/uL (0.00-0.02); Immature Granulocytes % (auto) 0.2 %; Lymphocytes # (auto) 1.65 K/uL (1.2-3.4); Lymphocytes % (auto) 36.3 %; Mean Corpuscular Volume 93.7 fL (80-100); Mean Platelet Volume 9.7 fL (7.4-10.4); Monocytes # (auto) 0.44 K/uL (0.11-0.59); Monocytes % (auto) 9.7 %; Neutrophils # (auto) 2.24 K/uL (1.4-6.5); Neutrophils % (auto) 49.2 %; Platelet Count 245 K/uL (130-400); RDW Coefficient of Variation 13.4 % (11.5-14.5); RDW Standard Deviation 46.1 fL (36.4-46.3); Red Blood Count 4.15 M/uL (4.2-5.4); White Blood Count 4.55 K/uL (4.8-10.8)
[2018-09-04 10:54] LABS: Mean Corpuscular Hgb Conc 33.2 g/dL (32-36)
[2018-09-04] MEDS ORDERED: fentaNYL citrate 100 MCG/2 ML VIAL ONE ×3 (11:42→16:52)
[2018-09-04] MEDS ORDERED: MIDAZOLAM HCL 1 MG/ML 2ML VIAL ONE ×2 (11:42→15:25)
[2018-09-04] MEDS ORDERED: PROPOFOL IV EMULSION 10 MG/ML 20 ML VIAL IV ONE ×3 (11:44→16:48)
[2018-09-04] MEDS ORDERED: ROCURONIUM BROMIDE 10 MG/ML 5 ML VIAL ONE ×2 (11:44→12:26)
[2018-09-04] MEDS ORDERED: LIDOCAINE HCL 2% 2 ML VIAL/AMP(20MG/ML) INFIL ONE ×2 (11:44→16:48)
[2018-09-04] MEDS ORDERED: ONDANSETRON INJ 2 MG/ML 2 ML VIAL ONE ×3 (11:44→17:27)
[2018-09-04] MEDS ORDERED: DEXAMETHASONE SOD INJ 4 MG/ML VIAL ONE ×3 (11:44→16:48)
--- NOTE | 2018-09-04 11:51 | History & Physical Bridge Note ---
Date of Service September 04, 2018 History & Physical Bridge Note I have examined the patient, reviewed the History & Physical and in the interval since the performance of the History & Physical I have noted the following changes of clinical significance: no changes noted
[2018-09-04] MEDS ORDERED: ONDANSETRON INJ 2 MG/ML 2 ML VIAL IV PRN ×2 (15:20→18:38)
[2018-09-04] MEDS ORDERED: ePHEDrine sulfate 50 MG/ML AMP IV PRN (15:20)
[2018-09-04] MEDS ORDERED: PROMETHAZINE HCL 12.5 MG in SODIUM CHLORIDE 0.9% 50 ML IV PRN (15:20)
[2018-09-04] MEDS ORDERED: PHENYLEPHRINE 100MCG/ML 5ML SYR IV PRN (15:20)
[2018-09-04] MEDS ORDERED: ATROPINE SULFATE 0.1 MG/ML 10ML SYR IV PRN (15:20)
[2018-09-04] MEDS ORDERED: LIDOCAINE 2% JELLY 5 ML TUBE ONE (15:26)
[2018-09-04] MEDS ORDERED: ACETAMINOPHEN 1000 MG/100 ML IV IV ONE (15:26)
[2018-09-04] MEDS ORDERED: GLYCOPYRROLATE 0.2 MG/ML VIAL ONE ×2 (16:48→17:27)
[2018-09-04] MEDS ORDERED: NEOSTIGMINE METHYLSULFATE 5 MG/5 ML SYR ONE (16:48)
[2018-09-04] MEDS ORDERED: KETOROLAC 30 MG/ML VIAL ONE (17:27)
[2018-09-04] MEDS ORDERED: PROMETHAZINE HCL 6.25 MG in SODIUM CHLORIDE 0.9% 50 ML IV PRN (18:38)
[2018-09-04] MEDS ORDERED: IBUPROFEN 200 MG TAB PO PRN (18:38)
[2018-09-04] MEDS ORDERED: ACETAMINOPHEN 325 MG TAB PO PRN (18:38)
[2018-09-04] MEDS ORDERED: SIMETHICONE 80 MG CHEW PO PRN (18:38)
--- NOTE | 2018-09-04 18:38 | Post Operative Brief Note ---
Immediate Post Op Note v1 Date of Surgery September 04, 2018 Pre & Post Diagnosis Operation Date: 09/04/18 12:10 Pre-Op Diagnosis: Uterine Prolapse Post-Op Diagnosis: Uterine Prolapse Procedure Operation Date: 09/04/18 12:10 Actual Procedures p Vaginal Hysterectomy, Possible Laparoscopic Assisted Uterosacral Ligament Vaginal Vault Suspension, Bilateral Oophorectomy - Jaspal Sloan MD EBL: 25ml Complications: None Surgeon Jaspal Sloan MD Associate Professor Of Anthropology None Estimated Blood Loss 25 Findings Consistent with Post-Op Diagnosis Drains Morfin Catheter
[2018-09-04] MEDS: fentaNYL citrate 100 MCG/2 ML VIAL IV PRN ×4 (19:07→19:22)
[2018-09-04] MEDS: HYDROmorphone INJ 1 MG/ML SYRINGE IV PRN ×2 (19:36→19:43)
--- NOTE | 2018-09-04 20:00 | Anesthesiology Progress Note ---
Date of Service September 04, 2018 Anesthesia Post Procedure Vital Signs Vital Signs: Temp Pulse Pulse Resp BP BP Pulse Ox 09/04/18 19:40 53 L 17 100 09/04/18 19:36 59 L 13 153/62 H 100 09/04/18 19:35 62 13 100 09/04/18 19:30 61 8 L 99 09/04/18 19:25 63 14 140/65 99 09/04/18 19:21 57 L 19 140/55 L 100 09/04/18 19:20 53 L 19 100 09/04/18 19:15 54 L 20 150/56 H 100 09/04/18 19:11 55 L 17 146/56 H 100 09/04/18 19:10 60 14 100 09/04/18 19:06 62 14 156/68 H 100 09/04/18 19:05 59 L 13 100 09/04/18 19:00 64 17 100 09/04/18 18:56 70 12 136/83 100 09/04/18 18:55 72 12 09/04/18 18:53 36.4 C L 76 81 14 145/92 H 145/92 H 100 09/04/18 10:36 36.6 C 78 78 H 151/83 H 96 Pain Intensity Abdomen: Pain Intensity: 7 Notes Mental Status: alert / awake / arousable and participated in evaluation Patient Amnestic to Procedure: Yes Nausea / Vomiting: adequately controlled Pain: improving with treatment Airway Patency, RR, SpO2: stable & adequate BP & HR: stable & adequate Hydration State: stable & adequate Anesthetic Complications: no major complications apparent and Pt Satisfied with anesthetic care Notes: Pt given toradol, tylenol, 300 mcg fentanyl, and 0.5 mg of dilaudid to assist with pain control. Pain improved from a 9 to a 7 after treatment. With a pain rating of 7 patient is sleeping comfortably and occasionally snoring, HR of 55, BP of 141/60 and RR of 13, 100% on 2 L NC. Decision made by anesthesiologist that patients pain is adequately controlled and that additional narcotic pain medication would not be appropriate at this time.
[2018-09-04] MEDS ORDERED: MoRPHine SULFATE 4 MG/ML 1 ML CARP\\VIAL IV STA (20:50)
[2018-09-05] MEDS: OXYCODONE/ACETAMINOPHEN 5mg/325mg TAB PO PRN ×2 (00:22→04:01)
[2018-09-05 06:25] LABS: Basophils # (auto) 0.01 K/uL (0-0.2); Basophils % (auto) 0.1 %; Eosinophils # (auto) 0.01 K/uL (0-0.5); Eosinophils % (auto) 0.1 %; Hematocrit (blood only) 34.9 % (37-47); Hemoglobin 11.5 g/dL (12.0-16.0); Immature Granulocytes # (auto) 0.02 K/uL (0.00-0.02); Immature Granulocytes % (auto) 0.2 %; Lymphocytes # (auto) 0.95 K/uL (1.2-3.4); Lymphocytes % (auto) 7.6 %; Mean Corpuscular Volume 92.6 fL (80-100); Mean Platelet Volume 9.7 fL (7.4-10.4); Monocytes # (auto) 0.24 K/uL (0.11-0.59); Monocytes % (auto) 1.9 %; Neutrophils # (auto) 11.27 K/uL (1.4-6.5); Neutrophils % (auto) 90.1 %; Platelet Count 241 K/uL (130-400); RDW Coefficient of Variation 13.4 % (11.5-14.5); RDW Standard Deviation 45.3 fL (36.4-46.3); Red Blood Count 3.77 M/uL (4.2-5.4)
[2018-09-05] MEDS: DOCUSATE SODIUM 100 MG CAP PO SCH ×2 (07:58→08:14)
--- NOTE | 2018-09-05 09:09 | Gynecologic Progress Note ---
Date of Service September 05, 2018 Assessment & Plan (1) Encounter for pre-operative examination: S/p LAVH, BSO, cystoscopy. POD 1 Stable for discharge Subjective Doing well post op. Pain controlled/ tolerating diet/ voiding/ ambulating. Physical Exam 2 Vital Signs (Past 24 Hours): Last Vital Signs Temp 37.4 C 09/05/18 03:20 Pulse 88 09/05/18 03:20 Resp 18 09/05/18 03:20 BP 114/67 09/05/18 03:20 Pulse Ox 96 09/05/18 03:20 Respiratory: normal respiratory effort
--- NOTE | 2018-09-14 14:27 | Operative Report ---
DATE OF OPERATION: 09/04/2018 PROCEDURES: Laparoscopic assisted vaginal hysterectomy, bilateral salpingo-oophorectomy, uterosacral ligament, vaginal vault suspension and cystoscopy. SURGEON: Jaspal Sloan MD ASSISTANTS: None. PREOPERATIVE DIAGNOSIS: Symptomatic uterine prolapse. POSTOPERATIVE DIAGNOSIS: Symptomatic uterine prolapse. ESTIMATED BLOOD LOSS: 25 mL. FLUIDS: Continuous lactated ringer. DRAINS: Morfin. URINE OUTPUT: 200 mL via Morfin. COMPLICATIONS: None. FINDINGS: There was noted to be a stage II uterine prolapse. Bilateral ovaries and fallopian tubes were within normal limits. There was noted to be an approximately 4-5 week size uterus. There was noted to be bilateral ureteral efflux and intact bladder at the completion of the case. INDICATIONS: Ms. Gonzalez is a 67-year-old with symptomatic pelvic organ prolapse. The patient was noted to have stage II to III uterine prolapse which was causing significant vaginal bulging symptoms which causing significant discomfort. Management options were discussed in clinic including pessary versus surgical options versus doing nothing. The patient did opt to proceed with surgical management via a laparoscopic-assisted vaginal hysterectomy with uterosacral ligament and vaginal suspension, bilateral oophorectomy and cystoscopy. DESCRIPTION OF PROCEDURE: The patient was taken to the operating room after consents were ensured. Upon presentation, she was properly identified. General endotracheal anesthesia was obtained without difficulty. The patient was then placed in dorsal lithotomy position and was prepped and draped in the normal sterile fashion. A preprocedural timeout was performed. A Morfin catheter was then placed. The attention was then turned to the laparoscopic portion of the case. A 5 mm incision was made at the inferior aspect of the umbilicus. A Veress needle was inserted through the incision. The abdomen was insufflated to 15 mmHg. There was noted to be an opening pressure of 2 mmHg with some symmetric abdominal rise and tympany over the liver consistent with proper intra-abdominal insufflation. A 5 mm trocar was then inserted through the incision and inspection noted atraumatic entry. 5 mm incisions were then made in the right and left lower quadrants, under direct visualization, atraumatic entry was noted. The inspection of the abdomen and pelvis was then performed. Attention was then turned to the right IP ligament. Careful attention was made to identify the ureter prior to dissection of the ovary and fallopian tube. The Harmonic scalpel was then used to dissect the IP ligament, freeing the ovary. This was then carried down to the level of the round ligament. The round ligament was then dissected which was then brought in and the dissection of the broad ligament was continued down to the level of the uterine vessels. Attention was then turned to the right IP ligament. The ureter was identified. The IP ligament was then dissected, freeing the ovary. This continued down to the level of the round ligament, which was then dissected and further dissection of the broad ligament was continued down to the level of the uterine vessels. The laparoscopic portion of the procedure was then stopped and the vaginal portion was started. A weighted speculum was then placed in the vagina. The cervix was visualized and grasped with 2 single tooth tenaculums. The cervicovaginal junction was then identified and a scalpel incision was then made from the right lateral aspect of the colpotomy continued to the right lateral aspect. The bladder was then dissected down and the peritoneum was then entered bluntly. A right angle retractor was then placed within the vagina and pelvis. The colpotomy was then continued posteriorly at the cervicovaginal junction and the posterior aspect of the colpotomy was then allowed for entry into the abdomen using sharp dissection without difficulty. The Shawna was then used to dissect down the bladder pillars with a clamp, cut and tie method. The uterosacral ligament was then identified, grasped with the Shawna clamp, was dissected off the cervix and lower uterine segment, and was ligated with 0 Vicryl. These were then tagged for future uterosacral ligament suspension. The uterine vessels were then identified. The Shawna clamps were then used to continue dissecting down the uterine vessels down to the completion of the prior dissection started laparoscopically using the Shawna with a clamp, cut and tie method. The uterus was then freed and removed through the vagina. The vaginal cuff was identified. The posterior vaginal cuff was then sutured with running locked suture from the right uterosacral ligament continuing posteriorly to the left uterosacral ligament. The vaginal cuff was then closed with 0 Vicryl continuous running suture. The uterosacral ligament suspension was then performed using the tagged uterosacral ligaments. A cystoscopy was then performed and there was noted to be intact bladder with bilateral ureteral efflux. The laparoscopic portion of the case was then reinitiated. Abdomen was insufflated and the laparoscope was then placed through the umbilicus. Inspection of the pelvis noted hemostasis of all pedicles. Needle, sponge and instrument counts were correct at the completion of the case. The decision was made to end the case. The abdomen was desufflated. The abdominal incisions were closed with a single stitch of 4-0 Monocryl with Dermabond placed on top. The patient was taken to the recovery room in stable condition. The vaginal cuff was noted to be having an airtight seal upon reevaluation laparoscopically. I attest to the content of the Intraoperative Record and any orders documented therein. Any exception s are noted below.
--- NOTE | 2018-09-14 14:31 | Discharge Summary ---
PROCEDURES: While admitted, laparoscopic-assisted vaginal hysterectomy, bilateral salpingo-oophorectomy, uterosacral ligament, vaginal vault suspension and cystoscopy. HOSPITAL COURSE: The patient presented for the above procedure. The procedure was done without complication. The patient then remained in house for the recovery period and was discharged home on postop day #1 in excellent condition. There were no complications during her stay. The patient recovered well. The patient will be seen in clinic for postoperative visit in 2 weeks, was instructed to call as needed. The patient was provided both written and verbal postoperative instructions.
== END 2018-09-05 10:15 | disposition home or self-care (01) ==
LOC: 4N 09:46 → ASU 09:46

== ENCOUNTER 2022-03-11 17:39 | Inpatient (IN) ==
--- NOTE | 2022-03-11 17:42 | ED Triage Note ---
Date of Service March 11, 2022 History of Present Illness This patient was briefly evaluated while in triage. An abbreviated physical exam was performed. This patient is a 71-year-old Female with past medical history of who presents to the ED for evaluation of right lower abdominal and diffuse lower back pain that began yesterday accompanied by nausea and vomiting now. Hx hysterectomy. No new urinary symptoms. Physical Exam CONSTITUTIONAL: in acute distress, dry heaving ABDOMINAL: significant tenderness in RLQ. No CVA tenderness BACK: no midline or paraspinal muscular tenderness Initial orders for labs and / or imaging were placed and patient was placed directly into an examination room. Please see further documentation for the full ED course.
[2022-03-11] MEDS ORDERED: SODIUM CHLORIDE 0.9% 1000ML 1,000 ML IV ONE (17:46)
[2022-03-11] MEDS ORDERED: ONDANSETRON INJ 2 MG/ML 2 ML VIAL IV STA (17:51)
[2022-03-11] MEDS ORDERED: KETOROLAC TROMETHAMINE 15 MG/ML VIAL IV STA (17:51)
--- NOTE | 2022-03-11 18:06 | Emergency Department Note ---
History of Present Illness General Chief Complaint: Abdominal Pain Stated Complaint: ABDOMINAL PAIN Time Seen by Provider: 03/11/22 17:46 History of Present Illness Provider Complaint: abdominal pain Onset (ago): 2 day(s) Pain Consistency: intermittent Location: RLQ Severity: severe Maximum Pain Intensity: 10 Current Pain Intensity: 9 Quality: + stabbing and + sharp Relieved By: + nothing Exacerbated By: + nothing Context: no foreign travel, no possible food poisoning, no sick contacts, no recent antibiotic use, no recent surgery/procedure, no recent injury or no history of similar episodes Associated Symptoms: + nausea and + vomiting; no diarrhea, no fever, no chills, no constipation, no dysuria, no hematemesis, no hematochezia, no hematuria, no anorexia, no headache, no neck pain, no back pain, no chest pain and no numbness Home Medications Medication Instructions Recorded Confirmed Type betamethasone dipropionate 0.05 % 1 appln topical BID PRN skin 11/23/19 10/19/21 Rx topical cream irritation #45 grams coenzyme Q10 200 mg capsule 200 mg PO QPM #30 caps 08/15/20 10/19/21 Rx omeprazole 20 mg capsule,delayed 20 mg PO DAILY #90 caps 02/28/21 10/19/21 Rx release celecoxib 200 mg capsule (Celebrex) 200 mg PO DAILY 08/10/21 10/19/21 History atorvastatin 10 mg tablet 10 mg PO QPM #90 tabs 09/24/21 10/19/21 Rx methylprednisolone 4 mg tablets in See Rx Instructions .Route 10/19/21 10/19/21 Rx a dose pack (Medrol (Judah)) .COMPLEX #21 ea amlodipine 5 mg tablet 5 mg PO QAM #90 tabs 02/18/22 Rx Allergies Allergy/AdvReac Type Severity Reaction Status Date / Time No Known Allergies Allergy Verified 10/25/21 14:12 Past Med/Surg History Medical History GERD (gastroesophageal reflux disease) Hyperlipidemia Hypertension Surgical History History of bilateral tubal ligation History of colonoscopy History of open reduction and internal fixation (ORIF) procedure LEFT ARM Family History Other No significant family history Social History Smoking Status: Former smoker Age Started Using Tobacco: 16; Age Quit Using Tobacco: 62; packs per day: 1; Years Smoked: 46; Cigarettes Per Day: 20; Number of Years Since Quit: 4; Second Hand Exposure: No; Hx Alcohol Use: Yes Alcohol type: beer Hx Substance Use: No Preferred Language: Latvian Communication Ability: Effective Test Data Developer Required: No Beliefs That Will Affect Care: None Current Living Situation: Family Feels Safe at Home: Yes Seatbelt Use: always Assistive Devices: None Review of Systems A total of 10 systems reviewed and were otherwise negative Physical Exam Vital Signs: Vital Signs - 24 hr 03/11/22 17:39 03/11/22 18:26 03/11/22 19:39 Temperature 37.2 C Temperature Source Temporal Artery Sc an Pulse Rate 147 H Pulse Rate [Left F swati] 105 H Pulse Rhythm Regular Respiratory Rate 18 17 Blood Pressure 174/89 H Blood Pressure [Le ft Arm] 142/84 H Blood Pressure Christina n 117 Blood Pressure Christina n [Left Arm] 103 Blood Pressure Pos ition Sitting Pulse Oximetry 95 96 94 Oxygen Delivery Me thod Room Air Room Air Room Air Sepsis Recent Feve r Within 48 Hours No Sepsis New/Unexpla ined Change in Men raul Status No Sepsis Action Take n by Nursing No Action Required Physical Exam: Physical Exam GENERAL: She is oriented to person, place, and time. She appears well-developed and well-nourished. She does not appear distressed. HENT: Exam performed. -Head: Normocephalic and atraumatic. -Right Ear: External ear normal. No mastoid tenderness. -Left Ear: External ear normal. No mastoid tenderness. -Mouth/Throat: The oropharynx is clear and moist. No trismus in the jaw. No dental abscesses or uvula swelling. No oropharyngeal exudate or tonsillar abscesses. EYES: Conjunctivae and EOM are normal. Pupils are equal, round, and reactive to light. Right eye exhibits no discharge. Left eye exhibits no discharge. No scleral icterus. NECK: Normal range of motion. Neck supple. No JVD present. No spinous process tenderness present. No carotid bruit present. No rigidity. No tracheal deviation and normal range of motion present. No Brudzinski's sign and no Kernig's sign noted. CV: Normal rate, regular rhythm, normal heart sounds and intact distal pulses. There is no peripheral edema. Palpable radial pulses bue. PULM/CHEST: Effort normal and breath sounds normal. No respiratory distress. No stridor. She has no wheezes. She has no rales. -Chest Wall: She exhibits no tenderness. ABD: The abdomen is soft. Bowel sounds are normal. She has no distension. No mass is present. There is tenderness palpation of the right lower quadrant. There is no rebound, no guarding, no Myers's sign Rovsig negative MUSC/SKEL: Normal range of motion. There is no peripheral edema, tenderness or deformity. LYMPH: No cervical adenopathy. NEURO: She is alert and oriented to person, place, and time. She has normal strength. No cranial nerve deficit or sensory deficit. Coordination and gait normal. GCS eye subscore is 4. GCS verbal subscore is 5. GCS motor subscore is 6. Cerebellar tests wnl. SKIN: Skin is warm and dry. She is not diaphoretic. PSYCH: She has a normal mood and affect. Behavior is normal. Judgment and thought content normal. Course Course 1745: The patient was evaluated in room A11. A complete history and physical exam was performed Cardiac monitoring: An order was placed for continuous cardiac monitoring. The monitor shows a rate of 100 with sinus rhythm 1944: Vital signs stable. Labs within normal limits. Imaging shows appendicitis. Cipro and Flagyl IV ordered for the patient. Patient will be admitted to the general surgery team discussed with Tj BRADLEY who stated admit to Dr. Kearns. Administered Medications Discontinued Medications Sodium Chloride (Nss 1000ml) 1,000 mls @ 999 mls/hr IV .Q1H1M ONE Stop: 03/11/22 18:46 Last Infusion: 03/11/22 19:35 Dose: 0 mls/hr Documented By: Admin: 03/11/22 18:19 Dose: 999 mls/hr Documented By: ML Ioversol (Optiray 300 100ml) 91 ml IV ONCE ONE Stop: 03/11/22 19:18 Last Admin: 03/11/22 19:18 Dose: 91 ml Documented By: ANITA Ketorolac Tromethamine (Ketorolac Tromethamine 15 Mg/Ml Vial) 15 mg IV NOW STA Stop: 03/11/22 17:52 Last Admin: 03/11/22 18:19 Dose: 15 mg Documented By: ML Ondansetron HCl (Ondansetron Inj 2 Mg/Ml 2 Ml Vial) 4 mg IV NOW STA Stop: 03/11/22 17:52 Last Admin: 03/11/22 18:19 Dose: 4 mg Documented By: IGNACIA Medical Decision Making Laboratory Data Result diagrams: 03/11/22 18:10 03/11/22 18:10 Lab Results 03/11/22 03/11/22 03/11/22 Range/Units 18:10 18:10 19:55 WBC 4.25 L (4.8-10.8) K/ul RBC 3.90 L (3.93-5.22) M/uL Hgb 11.9 L (12.0-16.0) g/dl Hct 35.3 (34.1-44.9) % MCV 90.5 (80.0-100.0) fL MCH 30.5 (25.0-34.0) pg MCHC 33.7 (32.0-36.0) g/dL RDW Std Deviation 42.2 (36.4-46.3) fL RDW Coeff of Ria 12.9 (11.5-14.5) % Plt Count 207 (130-400) K/uL MPV 9.9 (9.4-12.3) fL Immature Gran % (Auto) 0.2 % Neut % (Auto) 91.3 % Lymph % (Auto) 6.4 % [place] % (Auto) 0.9 % Eos % (Auto) 0.5 % Baso % (Auto) 0.7 % Neut # (Auto) 3.88 (1.4-6.5) K/uL Lymph # (Auto) 0.27 L (1.2-3.4) K/uL [place] # (Auto) 0.04 L (0.24-0.82) K/uL Eos # (Auto) 0.02 (0-0.50) K/uL Baso # (Auto) 0.03 (0-0.2) K/uL Immature Gran # (Auto) 0.01 (0.00-0.02) K/uL Sodium 136 (136-145) mmol/L Potassium 3.2 L (3.5-5.1) mmol/L Chloride 105 (98-107) mmol/L Carbon Dioxide 20 L (21-32) mmol/L Anion Gap 11 (3-11) BUN 12 (6-23) mg/dl Creatinine 0.72 (0.6-1.2) mg/dl Est Cr Clr Drug Dosing 56.4 ml/min Est GFR ( Amer) 97.7 ml/min Est GFR (Non-Af Amer) 84.3 ml/min BUN/Creatinine Ratio 16.7 (10-20) Glucose 128 H (70-99(Fasting)) mg/dl Calcium 9.1 (8.5-10.1) mg/dl Total Bilirubin 1.3 H (0.2-1.0) mg/dl AST 19 (13-39) U/L ALT 26 (7-52) U/L Alkaline Phosphatase 98 (34-104) U/L Troponin I High Sens 7.5 (0-14) pg/ml Total Protein 7.1 (6.0-8.3) gm/dl Albumin 4.3 (3.4-5.0) gm/dl Globulin 2.8 (2.5-4.0) gm/dl Albumin/Globulin Ratio 1.5 (0.9-2) Lipase 22 (11-82) U/L Urine Color Yellow Urine Appearance Clear (Clear) Urine pH 7.0 (4.5-7.5) Ur Specific [place] 1.028 (1.000-1.030) Urine Protein Negative (Negative) Urine Glucose (UA) Negative (Negative) Urine Ketones Negative (Negative) Urine Blood Negative (Negative) Urine Nitrite Negative (Negative) Urine Bilirubin Negative (Negative) Urine Urobilinogen Negative (Negative) Ur Leukocyte Esterase Negative (Negative) Imaging Data Radiologist's Impression: Abdomen/Pelvis CT 03/11/22 17:[address] WITH IV CONTRAST CT DOSE: 276.19 mGy.cm HISTORY: Right lower quadrant pain, vomiting, tender in RLQ TECHNIQUE: Multiaxial CT images of the abdomen and pelvis were performed following the use of intravenous contrast. A dose lowering technique was utilized adhering to the principles of ALARA. COMPARISON STUDY: None. FINDINGS: Mild dependent changes seen within the lung bases. A 2 mm subpleural nodule within the left lower lobe on image 16. No pneumoperitoneum. No pneumatosis. No fractures within the visualized osseous structures. Mild pelvic floor collapse. The bladder is unremarkable. Prior hysterectomy. Colonic diverticulosis. No evidence for acute diverticulitis. No dilated loops of bowel to suggest a bowel obstruction. A 4 mm hypodense lesion within the right hepatic lobe. This is technically too small to characterize but favors a cyst. The gallbladder, pancreas, spleen, adrenal glands, and kidneys are unremarkable. No hydronephrosis. Mild bilateral perinephric edema which is likely chronic. Moderate calcified plaque within the normal caliber abdominal aorta. No ret roperitoneal or pelvic lymphadenopathy. Dilated thick-walled and fluid-filled appendix measuring up to 9 mm with mild periappendiceal fat stranding. Findings are consistent with acute appendicitis. Questionable mild thickening within the terminal ileum is likely reactive. There is also mild thickening at the cecal base due to the acute appendicitis. No perforation or abscess identified. IMPRESSION: 1. Above findings consistent with acute appendicitis. 2. Additional findings as described above. ACT 112: Negative or not required by law. Electronically signed by: Arnulfo Zamora M.D. 03/11/2022 7:29 PM ECG Data Additional Comments: EKG #1 at 1755: Sinus tachycardia with rate of 121. [place] 104 QRS [address] elevation or ST depression. There was a lot of movement during this EKG. EKG #2 at 1809 without any pharmacological intervention: Sinus tachycardia with rate of 116. [place] QRS and QTc intervals are within normal limits. PVC present. No ST elevation or ST depression MDM Narrative Vital signs stable. Labs within normal limits. Imaging shows appendicitis. Cipro and Flagyl IV ordered for the patient. Patient will be admitted to the general surgery team discussed with Tj BRADLEY who stated admit to Dr. Kearns. Impression & Plan Acute appendicitis Discharge Plan Visit Data Chief Complaint: Abdominal Pain Stated Complaint: ABDOMINAL PAIN ED Provider: [facility] Discharge Problem: Acute appendicitis Patient Disposition: Admitted As Inpatient Forms Stand Alone Forms: [employer] Prescriptions Prescriptions: No Action betamethasone dipropionate 0.05 % cream 1 appln TOP BID PRN (Reason: skin irritation) Qty: 45 2RF coenzyme Q10 200 mg capsule 200 mg PO QPM Qty: 30 0RF omeprazole 20 mg capsule,delayed release(DR/EC) 20 mg PO DAILY Qty: 90 3RF atorvastatin 10 mg tablet 10 mg PO QPM Qty: 90 3RF amlodipine 5 mg tablet 5 mg PO QAM Qty: 90 3RF celecoxib [Celebrex] 200 mg capsule 200 mg PO DAILY methylprednisolone [Medrol (Judah)] 4 mg tablets,dose pack See Rx Instructions .Route .COMPLEX Qty: 21 0RF Rx Instructions: use as directed ; Referrals Referrals: Alfredo Zayas MD [Primary Care Provider] -
[2022-03-11 18:38] LABS: Hematocrit (blood only) 35.3 % (34.1-44.9); Hemoglobin 11.9 g/dl (12.0-16.0); Mean Corpuscular Hemoglobin 30.5 pg (25.0-34.0); Mean Corpuscular Hgb Conc 33.7 g/dL (32.0-36.0); Mean Corpuscular Volume 90.5 fL (80.0-100.0); Mean Platelet Volume 9.9 fL (9.4-12.3); Platelet Count 207 K/uL (130-400); RDW Coefficient of Variation 12.9 % (11.5-14.5); RDW Standard Deviation 42.2 fL (36.4-46.3); White Blood Count 4.25 K/ul (4.8-10.8)
[2022-03-11 19:01] LABS: Basophils # (auto) 0.03 K/uL (0-0.2); Basophils % (auto) 0.7 %; Eosinophils # (auto) 0.02 K/uL (0-0.50); Eosinophils % (auto) 0.5 %; Immature Granulocytes # (auto) 0.01 K/uL (0.00-0.02); Immature Granulocytes % (auto) 0.2 %; Lymphocytes # (auto) 0.27 K/uL (1.2-3.4); Lymphocytes % (auto) 6.4 %; Monocytes # (auto) 0.04 K/uL (0.24-0.82); Monocytes % (auto) 0.9 %; Neutrophils # (auto) 3.88 K/uL (1.4-6.5); Neutrophils % (auto) 91.3 %
[2022-03-11 19:02] LABS: Albumin Globulin Ratio 1.5 (0.9-2); Albumin Level 4.3 gm/dl (3.4-5.0); BUN Creatinine Ratio 16.7 (10-20); Bilirubin,Total 1.3 mg/dl (0.2-1.0); Calcium 9.1 mg/dl (8.5-10.1); Creatinine Clr Calc Pharmacy 56.4 ml/min; Est GFR (African American) 97.7 ml/min; Est GFR (Non-African American) 84.3 ml/min; Globulin 2.8 gm/dl (2.5-4.0); Potassium 3.2 mmol/L (3.5-5.1); Total Protein 7.1 gm/dl (6.0-8.3)
[2022-03-11 19:04] LABS: Troponin I High Sensitivity 7.5 pg/ml (0-14)
[2022-03-11] MEDS ORDERED: OPTIRAY 300 100mL IV ONE (19:17)
--- NOTE | 2022-03-11 19:32 | CT Scan Report ---
ABDOMEN AND PELVIS CT WITH IV CONTRAST CT DOSE: 276.19 mGy.cm HISTORY: Right lower quadrant pain, vomiting, tender in RLQ TECHNIQUE: Multiaxial CT images of the abdomen and pelvis were performed following the use of intrave nous contrast. A dose lowering technique was utilized adhering to the principles of ALARA. COMPARISON STUDY: None. FINDINGS: Mild dependent changes seen within the lung bases. A 2 mm subpleural nodule within the left lower lobe on image 16. No pneumoperitoneum. No pneumatosis. No fractures within the visualized osse ous structures. Mild pelvic floor collapse. The bladder is unremarkable. Prior hysterectomy. Colonic diverticulosis. No evidence for acute diverticulitis. No dilated loops of bowel to suggest a bowel ob struction. A 4 mm hypodense lesion within the right hepatic lobe. This is technically too small to ch aracterize but favors a cyst. The gallbladder, pancreas, spleen, adrenal glands, and kidneys are unre markable. No hydronephrosis. Mild bilateral perinephric edema which is likely chronic. Moderate calci fied plaque within the normal caliber abdominal aorta. No retroperitoneal or pelvic lymphadenopathy. Dilated thick-walled and fluid-filled appendix measuring up to 9 mm with mild periappendiceal fat str anding. Findings are consistent with acute appendicitis. Questionable mild thickening within the term inal ileum is likely reactive. There is also mild thickening at the cecal base due to the acute appen dicitis. No perforation or abscess identified. IMPRESSION: 1. Above findings consistent with acute appendicitis. 2. Additional findings as described above. ACT 112: Negative or not required by law. Electronically signed by: Arnulfo Zamora M.D. 03/11/2022 7:29 PM
[2022-03-11] MEDS ORDERED: CIPROFLOXACIN / D5W 400 MG/200 ML BAG IV STA (19:47)
[2022-03-11] MEDS ORDERED: metroNIDAZOLE 500 MG/100 ML BAG IV STA (19:47)
[2022-03-11] MEDS ORDERED: MoRPHine SULFATE 2 MG/ML CARP IV STA (20:06)
[2022-03-11] MEDS ORDERED: PIPERACILLIN/TAZOBACTAM 4.5 GM/120 ML BAG IV ONE (20:08)
[2022-03-11 20:14] LABS: Appearance Urine Clear (Clear); Bilirubin Urine Negative (Negative); Blood Urine Negative (Negative); Color Urine Yellow; Glucose Urine UA Negative (Negative); Ketones Urine Negative (Negative); Leukocyte Esterase Urine Negative (Negative); Nitrite Urine Negative (Negative); Protein Urine Negative (Negative); Specific Gravity Urine 1.028 (1.000-1.030); Urobilinogen Urine Negative (Negative)
[2022-03-11] MEDS ORDERED: ACETAMINOPHEN 1,000 MG/100 ML VIAL IV PRN (20:14)
[2022-03-11] MEDS ORDERED: MoRPHine SULFATE 4 MG/ML 1 ML CARP\\VIAL IV PRN (20:14)
[2022-03-11] MEDS ORDERED: ONDANSETRON INJ 2 MG/ML 2 ML VIAL IV PRN ×3 (20:14→22:41)
[2022-03-11] MEDS ORDERED: POTASSIUM CHLORIDE 10 MEQ in LACTATED RINGER'S 1,000 ML IV SCH (20:15)
--- NOTE | 2022-03-11 20:15 | History & Physical Report ---
Date of Service March 11, 2022 Assessment & Plan (1) Acute appendicitis: Plan: Due to the patient's clinical presentation and imaging we will proceed as follows: Analgesics will be provided Antiemetics will be provided We will administer antibiotics in the form of Zosyn We will hydrate her with IV fluids, supplementing with potassium We will perform an appendectomy this evening with Dr. Kearns. I have consented the patient for laparoscopic, possible open appendectomy. I discussed the risks, benefits, alternatives, and expected postoperative course with the patient. She wishes to proceed Will use SCDs for DVT prevention. No chemical means we use due to planned surgery She will be a level 1 full code History of Present Illness Primary Care Provider: Alfredo Zayas MD This is a 71-year-old female who presented the emergency department secondary to abdominal pain. Patient says she has been having low back pain for approximately 1 month that is alleviated with Tylenol. She notes approximate 24 hours ago she developed pain in the right lower quadrant of her abdomen. She has had associated nausea without vomiting. She denies any fevers, shakes, or chills. She notes that she did eat lunch at approximate 1:00 PM today which is 03/11/2022. She has not had anything to eat since that time. She has had prior abdominal surgeries in the form of a hysterectomy many years ago. As her abdominal pain persisted she presented the emergency department. It is nowhere the mention that the pain was alleviated somewhat with admit medicines that were administered in the emergency department. She does note that the pain is worse with certain movements and was worse on the drive into the hospital. In the emergency department the patient had labs and imaging which I independently reviewed. CBC revealed white blood cell count was 4.2. Hemoglobin was 11.9. Hematocrit and platelet count were both normal. Chemistry profile showed sodium is 136. Potassium was 3.2. BUN and creatinine were both normal. She had a slight elevation of her total bilirubin at 1.3 but her other LFTs including transaminases and alkaline phosphatase were normal. Her lipase was nonelevated. An EKG showed sinus tachycardia that did not show any changes indicative of acute ischemia. A chest x-ray was performed that showed no evidence of pleural effusion or pneumonia. A CT scan of the abdomen and pelvis showed the patient had a dilated appendix which measures approximate 9 mm. The appendix was fluid-filled with associated periappendiceal fat stranding which was concerning for acute appendicitis. There is no evidence of perforation or abscess. The patient notes that when she is feeling well she leads a very active lifestyle. She says that she does not get chest pain or have shortness of breath with her daily activities. At the time of my interview she was resting comfortably in bed and she was in no distress Allergies Allergy/AdvReac Type Severity Reaction Status Date / Time No Known Allergies Allergy Verified 10/25/21 14:12 Home Medications Medication Instructions Recorded Confirmed Type betamethasone dipropionate 0.05 % 1 appln topical BID PRN skin 11/23/19 10/19/21 Rx topical cream irritation #45 grams coenzyme Q10 200 mg capsule 200 mg PO QPM #30 caps 08/15/20 10/19/21 Rx omeprazole 20 mg capsule,delayed 20 mg PO DAILY #90 caps 02/28/21 10/19/21 Rx release celecoxib 200 mg capsule (Celebrex) 200 mg PO DAILY 08/10/21 10/19/21 History atorvastatin 10 mg tablet 10 mg PO QPM #90 tabs 09/24/21 10/19/21 Rx methylprednisolone 4 mg tablets in See Rx Instructions .Route 10/19/21 10/19/21 Rx a dose pack (Medrol (Judah)) .COMPLEX #21 ea amlodipine 5 mg tablet 5 mg PO QAM #90 tabs 02/18/22 Rx Past Med/Surg History Medical History GERD (gastroesophageal reflux disease) Hyperlipidemia Hypertension Surgical History History of bilateral tubal ligation History of colonoscopy History of open reduction and internal fixation (ORIF) procedure LEFT ARM Family History Other No significant family history Social History Smoking Status: Former smoker Age Started Using Tobacco: 16; Age Quit Using Tobacco: 62; packs per day: 1; Years Smoked: 46; Cigarettes Per Day: 20; Number of Years Since Quit: 4; Second Hand Exposure: No; Hx Alcohol Use: Yes Alcohol type: beer Hx Substance Use: No Preferred Language: Cypriot Communication Ability: Effective Associate Professor Of Counseling Required: No Beliefs That Will Affect Care: None Current Living Situation: Family Feels Safe at Home: Yes Seatbelt Use: always Assistive Devices: None Review of Systems Constitutional: no fever and no chills Eyes: + corrective lenses Ear, Nose, Mouth, Throat: no ear pain Respiratory: no cough and no dyspnea Gastrointestinal: as per Subjective / HPI, + abdominal pain and + nausea; no vomiting Genitourinary: no dysuria Musculoskeletal: + back pain Integumentary: no rash Neurologic: no localized weakness Physical Exam Constitutional: WD/WN, vitals as above Eyes: Wears glasses ENMT: Ears: no hearing impairment and no external ear abnormality Mouth: no oropharynx abnormality Neck: trachea midline Respiratory: normal respiratory effort, lungs clear to auscultation Cardiovascular: Rate/Rhythm: regular rate and regular rhythm Vessels: dorsalis pedis pulses present Gastrointestinal (Abdomen): Abdomen is soft, nonrigid, and nondistended. There is no rebound tenderness or guarding. Patient did have pain with palpation in the right lower quadrant over McBurney's point Musculoskeletal: No calf tenderness Skin: no rashes Neurologic: moves all extremities Psychiatric: A+Ox3, euthymic affect Results & Data Results & Data ([facility]) Vital Signs (Past 12 Hours) Vital Signs Temp Pulse Pulse Resp BP BP Pulse Ox 03/11/22 19:39 105 H 17 142/84 H 94 03/11/22 18:26 96 03/11/22 17:39 37.2 C 147 H 18 174/89 H 95 O2 Del Method 03/11/22 19:39 Room Air 03/11/22 18:26 Room Air 03/11/22 17:39 Room Air Supervising Physician Co-Signing Physician Notes Dr. Hillman examined the patient in the emergency room and discussed laparoscopic appendectomy possible open appendectomy with the patient and her . They do understand and wish to proceed Otherwise as above note PG Care Time/CCT Total # of Minutes Spent Total Time Spent with Patient: Total time spent is greater than 50% in coordination of care (as documented) at patient's floor/unit and/or counseling patient: Coding Level of Care Code INT OBSERVATION CARE 70M LVL 3 Diagnoses Acute appendicitis K35.80
[2022-03-11] MEDS ORDERED: BUPIVACAINE 0.5 % 5 MG/1 ML MPF 30ML VIAL ONE (20:17)
[2022-03-11] MEDS ORDERED: ROCURONIUM BROMIDE 10 MG/ML 5 ML VIAL IV ONE ×2 (20:18→20:41)
[2022-03-11] MEDS ORDERED: ONDANSETRON INJ 2 MG/ML 2 ML VIAL ONE (20:18)
[2022-03-11] MEDS ORDERED: NEOSTIGMINE METHYLSULFATE 1 MG/ML 10ML VIAL ONE (20:18)
[2022-03-11] MEDS ORDERED: PHENYLEPHRINE 100MCG/ML 5ML SYR ONE (20:18)
[2022-03-11] MEDS ORDERED: MIDAZOLAM HCL 1 MG/ML 2ML VIAL ONE (20:18)
[2022-03-11] MEDS ORDERED: DEXAMETHASONE SOD INJ 4 MG/ML VIAL ONE (20:18)
[2022-03-11] MEDS ORDERED: GLYCOPYRROLATE 0.2 MG/ML VIAL ONE (20:18)
[2022-03-11] MEDS ORDERED: PROPOFOL IV EMULSION 10 MG/ML 20 ML VIAL IV ONE (20:18)
[2022-03-11] MEDS ORDERED: SUCCINYLCHOLINE CHLORIDE 20 MG/ML 10 ML VIAL IV ONE (20:19)
[2022-03-11] MEDS ORDERED: fentaNYL citrate 100 MCG/2 ML VIAL ONE (20:19)
[2022-03-11] MEDS ORDERED: ATROPINE SULFATE 0.1 MG/ML 10ML SYR IV PRN (20:32)
[2022-03-11] MEDS ORDERED: HYDROmorphone INJ 1 MG/ML SYRINGE IV PRN (20:32)
[2022-03-11] MEDS ORDERED: fentaNYL citrate 100 MCG/2 ML VIAL IV PRN (20:32)
[2022-03-11] MEDS ORDERED: ePHEDrine sulfate 50 MG/ML AMP IV PRN (20:32)
[2022-03-11] MEDS ORDERED: PROMETHAZINE HCL 6.25 MG in SODIUM CHLORIDE 0.9% 50 ML IV PRN (20:32)
--- NOTE | 2022-03-11 20:32 | XRay Report ---
XR chest 1V portable HISTORY: Acute appendicitis. pre-op COMPARISON: Chest 10/27/2016. FINDINGS: No pneumothorax. No pleural effusions. The cardiac silhouette is top normal in size. There are few bibasilar linear densities consistent with subsegmental atelectasis. Otherwise, the lungs are clear. There is a intramedullary ivory noted within the left humerus consistent with prior internal fi xation. IMPRESSION: A few bibasilar linear densities within the lung bases likely representing subsegmental atelectasis. Otherwise, no acute process within the chest. ACT 112: Negative or not required by law. Electronically signed by: Arnulfo Zamora M.D. 03/11/2022 8:31 PM
--- NOTE | 2022-03-11 20:34 | Anesthesiology Consultation ---
Date of Service March 11, 2022 Assessment & Plan (1) Encounter for pre-operative examination: Chart Review Chart Review: Acceptable Risk for Surgery and Patient NOT seen in Pre Admission Testing Consults Requested none History Surgery Operation Date: 03/11/22 21:00 Proposed Procedures p Laparoscopic Appendectomy(Not Applicable) - Dennys Kearns MD, FACS Height/Weight Height: 5 ft Weight: 56.3 kg Allergies Allergy/AdvReac Type Severity Reaction Status Date / Time No Known Allergies Allergy Verified 10/25/21 14:12 Medications Home Medications Medication Instructions Recorded Confirmed Last Taken betamethasone dipropionate 0.05 % 1 appln topical BID PRN skin 11/23/19 10/19/21 Unknown topical cream irritation #45 grams coenzyme Q10 200 mg capsule 200 mg PO QPM #30 caps 08/15/20 10/19/21 Unknown omeprazole 20 mg capsule,delayed 20 mg PO DAILY #90 caps 02/28/21 10/19/21 Unknown release celecoxib 200 mg capsule (Celebrex) 200 mg PO DAILY 08/10/21 10/19/21 Unknown atorvastatin 10 mg tablet 10 mg PO QPM #90 tabs 09/24/21 10/19/21 Unknown methylprednisolone 4 mg tablets in See Rx Instructions .Route 10/19/21 10/19/21 Unknown a dose pack (Medrol (Judah)) .COMPLEX #21 ea amlodipine 5 mg tablet 5 mg PO QAM #90 tabs 02/18/22 Unknown Past Medical History Medical History GERD (gastroesophageal reflux disease) Hyperlipidemia Hypertension Past Family History Family History Other No significant family history Past Surgical History Surgical History History of bilateral tubal ligation History of colonoscopy History of open reduction and internal fixation (ORIF) procedure LEFT ARM hysterectomy Past Anesthesia History No Hx of Anesthesia Complications and No Family Hx of Anesthesia Complications Social History Smoking Status: Former smoker Smoking cigarettes per day: 20 Hx Alcohol Use: Yes Alcohol type: beer alcohol intake frequency: 3 or more drinks per day Hx Substance Use: No substance use type: does not use Physical Exam Vital Signs Last Vital Signs Temp 37.2 C 03/11/22 17:39 Pulse 114 H 03/11/22 20:40 Resp 17 03/11/22 20:40 BP 158/91 H 03/11/22 20:40 Pulse Ox 96 03/11/22 20:40 O2 Del Method 03/11/22 20:40 Testing Laboratory Results 03/11/22 18:10 03/11/22 18:10 Urine Color Yellow 03/11/22 19:55 Urine Appearance Clear (Clear) 03/11/22 19:55 Urine pH 7.0 (4.5-7.5) 03/11/22 19:55 Ur Specific [place] 1.028 (1.000-1.030) 03/11/22 19:55 Urine Protein Negative (Negative) 03/11/22 19:55 Urine Glucose (UA) Negative (Negative) 03/11/22 19:55 Urine Ketones Negative (Negative) 03/11/22 19:55 Urine Nitrite Negative (Negative) 03/11/22 19:55 Ur Leukocyte Esterase Negative (Negative) 03/11/22 19:55 Electrocardiogram Date: 03/11/22 HR 121. Sinus tachycardia with short OK Otherwise normal ECG When compared with ECG of 14-AUG-2018 13:27, Vent. rate has increased BY 57 BPM
[2022-03-11] MEDS ORDERED: SUGAMMADEX SODIUM 200 MG/2 ML VIAL IV ONE (20:41)
[2022-03-11] MEDS ORDERED: ACETAMINOPHEN 1,000 MG/100 ML VIAL IV ONE (21:41)
--- NOTE | 2022-03-11 21:41 | Post Operative Brief Note ---
PG Immediate Post Op with CF Date of Surgery March 11, 2022 Pre & Post Diagnosis Operation Date: 03/11/22 21:00 Pre-Op Diagnosis: Acute appendicitis Post-Op Diagnosis: Acute appendicitis, gangrenous I identified the patient and participated in the time-out.: Yes Procedure Operation Date: 03/11/22 21:00 Actual Procedures p Laparoscopic Appendectomy(Not Applicable) - Dennys Kearns MD, FACS Surgeon Dennys Kearns MD, FACS Cloth Sponger Carla Leon Estimated Blood Loss 5 Findings Consistent with Post-Op Diagnosis Gangrenous appendicitis with exudate Specimens Specimen Description: A. Appendix
[2022-03-11] MEDS ORDERED: ACETAMINOPHEN 1000 MG/100 ML IV IV ONE ×3 (21:55→21:56)
--- NOTE | 2022-03-11 22:07 | Anesthesiology Progress Note ---
Date of Service March 11, 2022 Anesthesia Post Procedure Vital Signs Vital Signs: Temp Pulse Pulse Pulse Resp BP BP 03/11/22 21:53 36.4 C L 106 H 18 119/68 03/11/22 20:40 114 H 17 158/91 H 03/11/22 19:39 105 H 17 142/84 H 03/11/22 18:26 03/11/22 17:39 37.2 C 147 H 18 174/89 H Pulse Ox O2 Del Method O2 Flow Rate 03/11/22 21:53 100 Oxymask 4 03/11/22 20:40 96 Room Air 03/11/22 19:39 94 Room Air 03/11/22 18:26 96 Room Air 03/11/22 17:39 95 Room Air Pain Intensity Right Lower Abdomen: Pain Intensity: 6 Transfer of Care Handoff Completed per policy Notes Mental Status: alert / awake / arousable and participated in evaluation Patient Amnestic to Procedure: Yes Nausea / Vomiting: adequately controlled Pain: adequately controlled Airway Patency, RR, SpO2: stable & adequate BP & HR: stable & adequate Hydration State: stable & adequate Anesthetic Complications: no major complications apparent and Pt Satisfied with anesthetic care
--- NOTE | 2022-03-11 22:26 | Operative Report (OR) ---
DATE OF OPERATION: 03/11/2022. NAME OF OPERATION: Laparoscopic appendectomy. PREOPERATIVE DIAGNOSIS: Acute appendicitis. POSTOPERATIVE DIAGNOSIS: Acute appendicitis with gangrenous appendix. STAFF SURGEON: Dennys Kearns MD. LUGGAGE ATTENDANT: MAXX Knight ANESTHESIA: General. DESCRIPTION OF PROCEDURE: The patient was brought in the operating room and placed on the operating table in supine position. Her abdomen was prepped and draped in the usual fashion. Pneumatic stocki ngs and orogastric tube were placed. 0.5% plain Marcaine was used to anesthetize all incisions. My legal document assistant helped with prepping, draping, removal of appendix and closure of the wounds. Incision was made above the umbilicus, carrying dissection down to the fascia, placing a Veress needle producing pneumoperitoneum, placing an 11 mm port. Under visualization, 5 mm port was placed suprapubically an d 12 mm port placed in the left lower quadrant. There was an exudate on the appendix. There was alonzo e mild cloudy fluid. The cecum was inflamed. Appendix was retracted. The base of the appendix was t ransected using Endo-PATRIC stapler and the mesoappendix transected using an Endo-PATRIC stapler. The appe ndix was removed through the 12 mm port site. After irrigation and hemostasis, all ports were removed . Fascia at the umbilicus and left lower quadrant closed using 0 Vicryl suture, skin reapproximated using subcuticular 4-0 Monocryl, Steri-Strips in the left lower quadrant and then Dermabond on the ot her 2 sites. The patient was transferred to recovery room in stable condition. Job ID: [id number]
[2022-03-11] MEDS ORDERED: LACTATED RINGER'S 1,000 ML IV SCH (22:41)
[2022-03-11] MEDS ORDERED: PROMETHAZINE HCL 12.5 MG in SODIUM CHLORIDE 0.9% 50 ML IV PRN (22:41)
[2022-03-12] MEDS: POTASSIUM CHLORIDE 10 MEQ in LACTATED RINGER'S 1,000 ML IV SCH ×2 (00:10→15:17)
[2022-03-12] MEDS: PIPERACILLIN/TAZOBACTAM 3.375 GM in DEXTROSE 5% 100 ML IV SCH ×3 (00:10→17:59)
[2022-03-12] MEDS: HYDROCODONE/ACETAMOPHEN 5/325MG TAB PO PRN ×4 (01:50→21:40)
--- NOTE | 2022-03-12 07:04 | Surgery Progress Note ---
Date of Service March 12, 2022 Assessment & Plan (1) S/P laparoscopic appendectomy: Plan: Patient with gangrenous appendicitis Had some periappendiceal cloudy fluid Will continue on IV antibiotics for today Advance diet as tolerated Ambulate in the hallway Admission and Anticipated Discharge Date Admission Date: March 11, 2022 Results & Data ([facility]) Vital Signs (Past 12 Hours) Vital Signs Temp Pulse Pulse Pulse Pulse Resp BP 03/12/22 01:44 36.9 C 87 18 03/11/22 22:30 03/12/22 00:25 36.9 C 81 14 03/11/22 23:26 36.8 C 91 H 18 03/11/22 23:00 37 C 97 H 14 03/11/22 22:30 37.1 C 97 H 14 03/11/22 22:20 37.1 C 97 H 14 03/11/22 22:10 100 H 12 03/11/22 22:00 101 H 13 03/11/22 21:53 36.4 C L 106 H 18 03/11/22 20:40 114 H 17 158/91 H 03/11/22 19:39 105 H 17 BP BP Pulse Ox O2 Del Method O2 Flow Rate 03/12/22 01:44 110/65 92 Room Air 03/11/22 22:30 Nasal Cannula 2 03/12/22 00:25 126/73 93 Room Air 03/11/22 23:26 117/76 98 Nasal Cannula 2 03/11/22 23:00 107/63 97 Nasal Cannula 2 03/11/22 22:30 108/67 98 Nasal Cannula 2 03/11/22 22:20 116/59 L 97 Nasal Cannula 2 03/11/22 22:10 117/59 L 96 Oxymask 2 03/11/22 22:00 122/66 99 Oxymask 4 03/11/22 21:53 119/68 100 Oxymask 4 03/11/22 20:40 96 Room Air 03/11/22 19:39 142/84 H 94 Room Air PG Care Time/CCT Total # of Minutes Spent Total Time Spent with Patient: Total time spent is greater than 50% in coordination of care (as documented) at patient's floor/unit and/or counseling patient: Coding Level of Care Code None Diagnoses S/P laparoscopic appendectomy Z90.49
[2022-03-12 07:52] LABS: Hematocrit (blood only) 32.6 % (34.1-44.9); Hemoglobin 10.7 g/dl (12.0-16.0); Mean Corpuscular Hemoglobin 30.3 pg (25.0-34.0); Mean Corpuscular Hgb Conc 32.8 g/dL (32.0-36.0); Mean Corpuscular Volume 92.4 fL (80.0-100.0); Mean Platelet Volume 10.2 fL (9.4-12.3); Platelet Count 183 K/uL (130-400); RDW Coefficient of Variation 13.2 % (11.5-14.5); RDW Standard Deviation 44.7 fL (36.4-46.3); Red Blood Count 3.53 M/uL (3.93-5.22); White Blood Count 9.45 K/ul (4.8-10.8)
[2022-03-12 08:20] LABS: Albumin Globulin Ratio 1.5 (0.9-2); Albumin Level 3.7 gm/dl (3.4-5.0); BUN Creatinine Ratio 12.5 (10-20); Bilirubin,Total 0.8 mg/dl (0.2-1.0); Calcium 8.7 mg/dl (8.5-10.1); Creatinine Clr Calc Pharmacy 56.4 ml/min; Est GFR (African American) 97.7 ml/min; Est GFR (Non-African American) 84.3 ml/min; Globulin 2.5 gm/dl (2.5-4.0); Magnesium 1.8 mg/dl (1.7-2.4); Phosphorus 3.5 mg/dl (2.5-4.9); Potassium 3.9 mmol/L (3.5-5.1); Total Protein 6.2 gm/dl (6.0-8.3)
[2022-03-12] MEDS: SENNOSIDES 8.8 MG/5 ML UDC PO SCH ×2 (08:30→21:41)
[2022-03-12 09:56] LABS: Dohle Bodies Occasional
[2022-03-12 09:57] LABS: Basophils # (auto) 0.02 K/uL (0-0.2); Basophils % (auto) 0.2 %; Immature Granulocytes # (auto) 0.07 K/uL (0.00-0.02); Immature Granulocytes % (auto) 0.7 %; Lymphocytes # (auto) 0.51 K/uL (1.2-3.4); Lymphocytes % (auto) 5.4 %; Monocytes # (auto) 0.29 K/uL (0.24-0.82); Monocytes % (auto) 3.1 %; Neutrophils # (auto) 8.56 K/uL (1.4-6.5); Neutrophils % (auto) 90.6 %
--- NOTE | 2022-03-12 14:44 | Electrocardiogram Report ---
Test Reason : Blood Pressure : / mmHG Vent. Rate : 121 BPM Atrial Rate : 121 BPM P-R Int : 104 ms QRS Dur : 086 ms QT Int : 450 ms P-R-T Axes : 000 075 049 degrees QTc Int : 639 ms Sinus tachycardia with short MI Otherwise normal ECG When compared with ECG of 14-AUG-2018 13:27, Vent. rate has increased BY 57 BPM Confirmed by Aniceto Du ([id number]) on 03/12/2022 2:44:17 PM Referred By: REFERRED SELF Confirmed By:Aniceto Du
[2022-03-13] MEDS: PIPERACILLIN/TAZOBACTAM 3.375 GM in DEXTROSE 5% 100 ML IV SCH (01:50)
--- NOTE | 2022-03-13 07:26 | Discharge Summary (DS) ---
DATE OF ADMISSION: 03/11/2022. DATE OF DISCHARGE: 03/13/2022. NAME OF OPERATION: Laparoscopic appendectomy. PREOPERATIVE DIAGNOSIS: Acute appendicitis. POSTOPERATIVE DIAGNOSIS: Acute appendicitis. STAFF SURGEON. Dennys Kearns MD HOSPITAL COURSE: The patient was brought in the hospital on 03/11/2022 with a diagnosis of acute dale endicitis. She was taken to the operating room where she underwent laparoscopic appendectomy showing gangrenous appendix with some cloudy fluid. She was kept on IV antibiotics for two days and then sh e was felt stable for discharge home today to be continued on oral antibiotics and to be followed in the surgical clinic within 1-2 weeks. She was also given a prescription for pain medication. Job ID: [id number]
[2022-03-13] MEDS: SENNOSIDES 8.8 MG/5 ML UDC PO SCH (07:56)
[2022-03-13] MEDS: HYDROCODONE/ACETAMOPHEN 5/325MG TAB PO PRN (08:01)
[2022-03-13] MEDS ORDERED: PANTOprazole 40 MG TAB PO SCH (09:00)
[2022-03-13 10:10] VITALS: BP 138/72; PULSE 82; TEMP 98.4; O2SAT 93
--- NOTE | 2022-03-13 13:37 | Electrocardiogram Report ---
Test Reason : Blood Pressure : / mmHG Vent. Rate : 116 BPM Atrial Rate : 116 BPM P-R Int : 132 ms QRS Dur : 084 ms QT Int : 342 ms P-R-T Axes : 040 057 041 degrees QTc Int : 475 ms Sinus tachycardia with occasional Premature ventricular complexes Nonspecific ST and T wave abnormality Abnormal ECG When compared with ECG of 11-MAR-2022 17:55, Premature ventricular complexes are now Present Nonspecific T wave abnormality, worse in Anterior leads Confirmed by Aniceto Du ([id number]) on 03/13/2022 1:37:19 PM Referred By: REFERRED SELF Confirmed By:Aniceto Du
== END 2022-03-13 10:58 | disposition home or self-care (01) | DRG 343 ==
LOC: ED 17:39 → OR 20:40 → 3N 20:40